=== PATIENT | female | born 1940 | race Caucasian/White ===

== ENCOUNTER 2023-09-14 12:53 | Inpatient (IN) | payer MEDICARE, OTHER, SELFPAY ==
[2023-09-14 12:54] VITALS: BP 121/60; PULSE 83; RESP 16; TEMP 36.3; O2SAT 94
[2023-09-14 12:59] VITALS: BMI 25.6
--- NOTE | 2023-09-14 13:11 | CT_ITS ---
CT LEFT LOWER EXTREMITY CLINICAL INDICATION: Tibial plateau fracture TECHNIQUE: Axial CT images of the LEFT lower extremity was performed IV contrast material. Coronal and sagittal reformats were provided. The protocol utilizes one or more of the following dose reduction techniques: automated exposure control, adjustment of mA and/or kV according to patient size,and/or use of iterative reconstruction technique. RADIATION DOSAGE (If Supplied By Facility): CTDIvol = ( 15.35 ) mGy, DLP = ( 779.75 ) mGycm COMPARISON: No relevant prior comparison study available FINDINGS: Bones: The bones are diffusely demineralized. There is a fracture within the proximal tibial metaphysis which extends into the lateral tibial plateau. No dislocation is visualized. There is a fracture of the proximal fibular epiphysis ascending into the metaphysis. There is an associated joint effusion. There are high density foci within the medial and lateral compartments consistent with chondrocalcinosis. There are vascular calcifications. No lytic or blastic osseous masses. Soft Tissues: There is stranding within the deep soft tissue adjacent to the proximal tibia and fibula.There is subcutaneous stranding within the lateral proximal lower extremity. CT/Extremity Lower without Contra IMPRESSION: Proximal tibial fracture. Proximal fibular fracture. Joint effusion. Atherosclerosis. Chondrocalcinosis. Electronically Signed: Ruthie Marcos MD at 15:23 EDT ,
[2023-09-14] MEDS: Morphine 4 MG/ML Syringe IV ×2 (13:26→14:45)
[2023-09-14] MEDS: Ondansetron 4 MG/2 ML Vial IV ×2 (13:26→15:26)
[2023-09-14 13:37] LABS: Absolute Lymphocyte Count 1.83 X10^3/uL (0.83-4.51); Absolute Neutrophil Count 8.5 X10^3/uL (2.0-7.7); Basophil# 0.06 X10^3/uL; Basophil% 0.5 % (0-1); Eosinophil# 0.15 X10^3/uL; Eosinophils% 1.3 % (0-5); Hematocrit 34.6 % (37-47); Hemoglobin 11.2 g/dL (12.0-15.0); Lymphocyte # 1.83 X10^3/ul (0.83-4.51); Lymphocyte % 15.7 % (19-41); Mean Corp Hgb Conc 32.4 g/dL (32-36); Mean Corpuscular Hgb 32.1 pg (27.0-32.0); Mean Corpuscular Volume 99.1 fL (81-99); Mean Platelet Vol. 11.4 fl (6.2-12.0); Monocyte% 9.4 % (0-10); NRBC Flagged by Analyzer 0 % (0-5); Neutrophil # 8.49 X10^3/uL (2.7-7.7); Neutrophil % 72.6 % (47-70); Platelet Count 270 K/mm3 (150-450); RBC Distribution Width CV 13.4 % (11.6-14.6); RBC Distribution Width SD 49.1 fl (35.1-43.9); Red Blood Count 3.49 M/mm3 (4.2-5.4); White Blood Count 11.7 K/mm3 (4.4-11.0)
--- NOTE | 2023-09-14 13:43 | EDS_ITS ---
<Statement entered by Claire Taylor MD - 09/14/23 21:45> I have personally performed a face to face assessment of the patient and have reviewed the SHANNA Note. Patient presents secondary to left knee pain. Patient was at a restaurant yesterday when she missed a step and fell injuring her left knee. She was seen at [facility] where she was diagnosed with a tibial plateau fracture. She was given a prescription for narcotics and placed in a straight leg knee brace. Patient lives alone and has not been able to get around and care for herself. Her pain is also not controlled. Patient sitting upright in bed no acute distress. Head and neck examination was no obvious external sign of trauma. Heart is regular rate and rhythm. Lung sounds are clear. Abdomen is soft with no focal tenderness. Left lower extremity examination reveals diffuse edema around the left knee with tenderness palpation. She does have good distal pulses. No tenderness at the hip or ankle. Patient given morphine for pain control. CBC and chemistry studies are obtained. White count is 11.7 with 72% neutrophils. Hemoglobin is 11.2 and hematocrit is 34.6. Chemistry studies and coags are unremarkable. CT scan of the left knee reveals fracture of the proximal tibia and fibula. There is concern for potential quadriceps injury based on exam findings, however this is not specifically documented in the CT. After getting second dose of morphine, patient developed chest pain and burning. EKG was obtained and reveals sinus rhythm at 65 bpm with no evidence of acute ischemia. She is given a dose of Protonix along with a GI cocktail. Orthopedics has been contacted as well as hospitalist. She will remain in the knee immobilizer and will be evaluated by Ortho. She may require short-term placement for rehab. Patient and daughter at bedside comfortable with the plan. HPI History of Present Illness Chief Complaint: Lower Extremity Injury Narrative Narrative: Patient is an 82-year-old female with history of fibromyalgia, hyperlipidemia, GERD who presents to the emergency department for worsening left leg pain. Patient states last evening, she was in [facility], she stepped off of a higher step and did not see it, she had pain to her left knee, left leg. Went to [facility], was diagnosed with a tibial plateau fracture, placed in a knee immobilizer given pain medicine and sent home. Patient does live alone and is unable to bear weight and take care of herself. The daughter is concerned that she cannot live at home by herself. The pain is also unbearable and the oxycodone is not helping. [facility] Medical History Nonrheumatic aortic (valve) stenosis Atherosclerotic heart disease of [place] coronary artery without angina pectoris Essential hypertension Elevated coronary artery calcium score Hyperlipidemia GERD (gastroesophageal reflux disease) Bilateral carotid artery disease Fibromyalgia H/O esophageal spasm Anxiety and depression Insomnia Home Medications ?Medication ?Instructions ?Recorded ?Last Taken ?Type acetaminophen 650 mg 650 mg PO Q12H 08/20/23 Unknown History tablet,extended release (Tylenol Arthritis Pain) alprazolam 0.25 mg tablet 0.25 mg PO TID PRN 08/20/23 Unknown History amlodipine 5 mg tablet 5 mg PO BID 08/20/23 Unknown History ascorbic acid (vitamin C) 500 mg 500 mg PO BID 08/20/23 Unknown History tablet aspirin 81 mg tablet,delayed 81 mg PO DAILY 08/20/23 Unknown History release (Adult Low Dose Aspirin) cholecalciferol (vitamin D3) 25 50 mcg PO DAILY 08/20/23 Unknown History mcg (1,000 unit) tablet clotrimazole-betamethasone 1 1 applic topical BID 08/20/23 Unknown History %-0.05 % topical cream estradiol 0.01% (0.1 mg/gram) 1 g vaginal Q OTHER DAY 08/20/23 Unknown History vaginal cream fluoxetine 20 mg capsule 20 mg PO BID 08/20/23 Unknown History gabapentin 600 mg tablet 600 mg PO TID 08/20/23 Unknown History lactobacillus combination no.4 3 3,000 mmu cells PO DAILY 08/20/23 Unknown History billion cell capsule (Probiotic) magnesium oxide 500 mg PO DAILY 08/20/23 Unknown History melatonin 5 mg tablet 5 mg PO HS PRN 08/20/23 Unknown History multivitamin 1 tab PO DAILY 08/20/23 Unknown History omeprazole 20 mg capsule,delayed 20 mg PO DAILY 08/20/23 Unknown History release ondansetron HCl 4 mg tablet 4 mg PO Q6H PRN 08/20/23 Unknown History pravastatin 40 mg tablet 40 mg PO DAILY 08/20/23 Unknown History zinc acetate 50 mg (zinc) capsule 50 mg PO DAILY 08/20/23 Unknown History cephalexin 250 mg capsule 250 mg PO DAILY 09/11/23 Unknown History d-mannose 500 mg capsule 1,000 mg PO BID 09/11/23 Unknown History fluorometholone 0.1 % eye 1 drp ophthalmic (eye) BID 09/11/23 Unknown History drops,suspension Allergy/AdvReac Type Severity Reaction Status Date / Time codeine Allergy Unknown hallucinati Verified 09/14/23 12:54 ons Sulfa (Sulfonamide Allergy Unknown Rash Verified 09/14/23 12:54 Antibiotics) atorvastatin AdvReac Unknown muscle Verified 09/14/23 12:54 cramping Family History Father Heart disease age 49 Mother Heart disease age 76 Brother Heart disease age 60 Brother Myocardial infarction Surgical History History of back surgery History of esophagogastroduodenoscopy (EGD) H/O arthroscopic knee surgery History of colonoscopy History of dilatation and curettage History of tonsillectomy History of cholecystectomy History of hysterectomy Social History Smoking Status: Former smoker how long ago did patient quit smokin alcohol intake: current alcohol intake frequency: 0-2 drinks per day Alcohol type: wine substance use type: does not use caffeine: Yes ROS ROS ED ROS Narrative Constitutional: Negative for fever, chills, weight loss, weakness Eyes: Negative for vision loss, vision change, double vision ENT: Negative for any sore throat, ear pain, congestion Cardiovascular: Negative for any chest pain, tightness, palpitations Respiratory: Negative for any cough, sputum production, hemoptysis, dyspnea, dyspnea on exertion, orthopnea Gastrointestinal: Negative for any abdominal pain, nausea, vomiting, diarrhea, constipation, blood in stool, blood in vomit : Negative for any urinary frequency, dysuria, retention, blood in urine Muscle skeletal: Negative for any neck pain, back pain. Positive left knee pain, left lower extremity pain Neurological: Negative for any headache, syncope, dizziness Skin: Negative for any rashes, itching, abrasions, lacerations Psychiatric: Negative for any depression, anxiety, stress, suicidal ideation, homicidal ideation Hematologic: Negative for any excessive bruising, easy bleeding EXAM Physical Exam Narrative Exam Narrative: Vital signs reviewed. Extremities: Patient does have some edema to the inferior aspect of the left knee, patient does not have an intact extensor mechanism. I do see is some deformity of the distal quadriceps. This is concerning. Patient does have +2 pedal pulse. Patient is able to dorsiflex, plantarflex the foot without any difficulty. Neuro: Cranial nerves II through XII intact, no focal neurological deficits. Skin: Clean dry and intact with no rash, purpura, petechiae, vesicles or pustules. Backs/flank: No CVA tenderness, no midline spinal tenderness, no deformity. Psych: Normal mood and affect. No SI, HI or acute psychosis. Const Vital Signs: 09/14/23 12:54 09/14/23 15:20 09/14/23 15:20 Temperature 97.3 F L Temperature Source Temporal Pulse Rate 83 Respiratory Rate 16 Blood Pressure 121/60 H Blood Pressure Mean 80 Pulse Ox 94 86 99 Oxygen Delivery Method Room Air Room Air Nasal Cannula Oxygen Flow Rate (L/min) 2 MDM MDM Lab Data Labs: Laboratory Results - last 24 hr 09/14/23 13:21 WBC 11.7 H RBC 3.49 L Hgb 11.2 L Hct 34.6 L MCV 99.1 H MCH 32.1 H MCHC 32.4 RDW Std Deviation 49.1 H RDW Coeff of Magdaleno 13.4 Plt Count 270 MPV 11.4 Immature Gran % (Auto) 0.500 Neut % (Auto) 72.6 H Lymph % (Auto) 15.7 L [place] % (Auto) 9.4 Eos % (Auto) 1.3 Baso % (Auto) 0.5 Absolute Neuts (auto) 8.5 H Absolute Lymphs (auto) 1.83 Nucleated RBC % 0 PT 12.7 INR 1.0 Sodium 135 L Potassium 3.9 Chloride 103 Carbon Dioxide 26.0 Anion Gap 6 BUN 12 Creatinine 0.72 Estim Creat Clear Calc 48.32 Est GFR (MDRD) Af Amer 99 Est GFR (MDRD) Non-Af 82 BUN/Creatinine Ratio 16.6 Glucose 105 Calcium 8.8 Radiography Diagnostic Testing: Clinical Impression(s) from Imaging Studies Lower Extremity CT 09/14/23 13:11 IMPRESSION: Proximal tibial fracture. Proximal fibular fracture. Joint effusion. Atherosclerosis. Chondrocalcinosis. Electronically Signed: Ruthie Marcos MD at 15:23 EDT , Treatment and Re-Evaluation :: Differential diagnosis includes however is not limited to: Uncontrolled pain, inability to live on her own secondary to tibial plateau fracture, quadricep tendon rupture, internal derangement Patient appears to be in mild distress secondary to pain to the left knee. Presenting to the emergency department with a known tibial plateau fracture that occurred last evening, inability to ambulate, care for self at home, unable to get the pain under control. Physical examination did show a left knee that did not have an intact extensor mechanism. I am concerned for quadricep tendon tear, patient will receive an CT scan of the left lower extremity. Patient be given basic laboratory eval as well as IV morphine, IV Zofran. Speaking with the patient as well as the patient's daughter, they are unsure if she can return home secondary to the pain and inability to ambulate. Patient will be reevaluated Patient's CBC shows slight leukocytosis with white blood count 11.7, hemoglobin 11.2 slightly low. PT/INR within normal limits. Chemistries were unremarkable. CT scan of the left lower extremity shows a proximal tibial fracture, proximal fibular fracture, joint effusion, arthrosclerosis as well as chondrocalcinosis. Patient had to be redosed with IV morphine. Patient then developed some midsternal chest pain which she had feeling of nausea likely from the morphine. EKG was unremarkable. [address] elevation. I did speak with Dr. Cook from orthopedics, they will follow the patient, I was able to speak to the hospitalist, patient will be admitted to the hospital. Spoke with the patient the patient's daughter, they are happy with the plan of care, stable for admission. Discharge Plan Triage Chief Complaint: Lower Extremity Injury ED Midlevel Provider: Taras Rey ED Provider: Claire Taylor Dx/Rx/DC Orders Clinical Impression: Fall, Closed fracture of tibial plateau, Closed fracture of proximal end of fibula, Inability to ambulate due to knee, Intractable pain Prescriptions: No Action acetaminophen [Tylenol Arthritis Pain] 650 mg tablet extended release 650 mg PO Q12H alprazolam 0.25 mg tablet 0.25 mg PO TID PRN amlodipine 5 mg tablet 5 mg PO BID ascorbic acid (vitamin C) 500 mg tablet 500 mg PO BID aspirin [Adult Low Dose Aspirin] 81 mg tablet,delayed release (DR/EC) 81 mg PO DAILY cholecalciferol (vitamin D3) 25 mcg (1,000 unit) tablet 50 mcg PO DAILY clotrimazole-betamethasone 1-0.05 % cream 1 applic topical BID estradiol 0.01 % (0.1 mg/gram) cream 1 g vaginal Q OTHER DAY fluoxetine 20 mg capsule 20 mg PO BID Rx Instructions: administer in the morning and at noon/midday gabapentin 600 mg tablet 600 mg PO TID Probiotic 3 billion cell capsule 3,000 mmu cells PO DAILY Rx Instructions: administer with a meal magnesium oxide 500 mg magnesium tablet 500 mg PO DAILY melatonin 5 mg tablet 5 mg PO HS PRN multivitamin Tablet 1 tab PO DAILY omeprazole 20 mg capsule,delayed release(DR/EC) 20 mg PO DAILY ondansetron HCl 4 mg tablet 4 mg PO Q6H PRN pravastatin 40 mg tablet 40 mg PO DAILY zinc acetate 50 mg (zinc) capsule 50 mg PO DAILY fluorometholone 0.1 % drops,suspension 1 drp ophthalmic (eye) BID d-mannose 500 mg capsule 1,000 mg PO BID cephalexin 250 mg capsule 250 mg PO DAILY Primary Care Provider: Sosa Vazquez Referrals: Sosa Vazquez NP-C [Primary Care Provider] - Print Language: Swedish Disposition Disposition: Acute Care Hospital [facility]
[2023-09-14 13:49] LABS: Prothrombin Time (Protime)PT. 12.7 SECONDS (11.7-14.9)
[2023-09-14 13:50] LABS: Anion Gap 6 (5-15); BUN 12 mg/dL (7-18); BUN/Creat Ratio 16.6 RATIO (10-20); Calcium,Total 8.8 mg/dL (8.5-10.1); Chloride 103 mmol/L (98-107); Creatinine, Serum 0.72 mg/dL (0.55-1.02); EST Glomerular Filtration Rate 82 mL/min (>60); Est Glom Filt Rate - Afr Amer 99 mL/min (>60); Estimated Creatinine Clearance 48.32 ml/min; Glucose 105 mg/dL (74-106); Potassium 3.9 mmol/L (3.5-5.1); Sodium Level 135 mmol/L (136-145)
--- NOTE | 2023-09-14 15:05 | EKG12_ITS ---
Test Reason : CP Blood Pressure : / mmHG Vent. Rate : 065 BPM Atrial Rate : 065 BPM P-R Int : 136 ms QRS Dur : 088 ms QT Int : 420 ms P-R-T Axes : 030 023 029 degrees QTc Int : 436 ms Normal sinus rhythm Normal ECG Confirmed by REYNOLD JUAREZ, ADOLFO ([id number]), desk editor KARENA STEVENS ([id number]) on 09/18/2023 9:38:26 AM Referred By: Confirmed By:CARRIE FLAHERTY MD
[2023-09-14 15:20] VITALS: O2SAT 86; O2SAT 99
[2023-09-14] MEDS: Pantoprazole Sodium 40 MG in 0.9% Normal Saline (100mL MB+) 100 ML 330 MG IV (15:49)
--- NOTE | 2023-09-14 15:51 | NURSING ---
DR AYSHA FREEDMAN
--- NOTE | 2023-09-14 15:54 | NURSING ---
MED SURG KITTOE TIBIAL PLATEAU FRACTURE, FIBULAR FRACTURE, INABILITY TO AMBULATE
--- NOTE | 2023-09-14 16:10 | HP.PCM.HOS_ITS ---
HPI - General General Date of Admission: 09/14/23 Date of Service: 09/14/23 Chief Complaint: Left knee pain HPI Narrative DESHAWN RAMOS, is a 82 F who presents with left knee pain. Patient apparently sustained a fall a day prior to her admission. She was seen at an outside hospital was brought to emergency department. Diagnosed with left tibial plateau fracture. Treated with pain medication and immobilization and discharged home. Patient apparently could not carry out activities of daily living following her discharge. Her pain apparently became more intense necessitating patient presenting today emergency department. Imaging studies obtained in the ED did confirm the diagnosis. Admitted to regular nursing floor for subsequent management [facility] Medical History Nonrheumatic aortic (valve) stenosis Atherosclerotic heart disease of [place] coronary artery without angina pectoris Essential hypertension Elevated coronary artery calcium score Hyperlipidemia GERD (gastroesophageal reflux disease) Bilateral carotid artery disease Fibromyalgia H/O esophageal spasm Anxiety and depression Insomnia Home Medications ?Medication ?Instructions ?Recorded ?Last Taken ?Type acetaminophen 650 mg 650 mg PO Q12H 08/20/23 Unknown History tablet,extended release (Tylenol Arthritis Pain) alprazolam 0.25 mg tablet 0.25 mg PO TID PRN 08/20/23 Unknown History amlodipine 5 mg tablet 5 mg PO BID 08/20/23 Unknown History ascorbic acid (vitamin C) 500 mg 500 mg PO BID 08/20/23 Unknown History tablet aspirin 81 mg tablet,delayed 81 mg PO DAILY 08/20/23 Unknown History release (Adult Low Dose Aspirin) cholecalciferol (vitamin D3) 25 50 mcg PO DAILY 08/20/23 Unknown History mcg (1,000 unit) tablet clotrimazole-betamethasone 1 1 applic topical BID 08/20/23 Unknown History %-0.05 % topical cream estradiol 0.01% (0.1 mg/gram) 1 g vaginal Q OTHER DAY 08/20/23 Unknown History vaginal cream fluoxetine 20 mg capsule 20 mg PO BID 08/20/23 Unknown History gabapentin 600 mg tablet 600 mg PO TID 08/20/23 Unknown History lactobacillus combination no.4 3 3,000 mmu cells PO DAILY 08/20/23 Unknown History billion cell capsule (Probiotic) magnesium oxide 500 mg PO DAILY 08/20/23 Unknown History melatonin 5 mg tablet 5 mg PO HS PRN 08/20/23 Unknown History multivitamin 1 tab PO DAILY 08/20/23 Unknown History omeprazole 20 mg capsule,delayed 20 mg PO DAILY 08/20/23 Unknown History release ondansetron HCl 4 mg tablet 4 mg PO Q6H PRN 08/20/23 Unknown History pravastatin 40 mg tablet 40 mg PO DAILY 08/20/23 Unknown History zinc acetate 50 mg (zinc) capsule 50 mg PO DAILY 08/20/23 Unknown History cephalexin 250 mg capsule 250 mg PO DAILY 09/11/23 Unknown History d-mannose 500 mg capsule 1,000 mg PO BID 09/11/23 Unknown History fluorometholone 0.1 % eye 1 drp ophthalmic (eye) BID 09/11/23 Unknown History drops,suspension Allergy/AdvReac Type Severity Reaction Status Date / Time codeine Allergy Unknown hallucinati Verified 09/14/23 12:54 ons Sulfa (Sulfonamide Allergy Unknown Rash Verified 09/14/23 12:54 Antibiotics) atorvastatin AdvReac Unknown muscle Verified 09/14/23 12:54 cramping Family History Father Heart disease age 49 Mother Heart disease age 76 Brother Heart disease age 60 Brother Myocardial infarction Surgical History History of back surgery History of esophagogastroduodenoscopy (EGD) H/O arthroscopic knee surgery History of colonoscopy History of dilatation and curettage History of tonsillectomy History of cholecystectomy History of hysterectomy Social History Smoking Status: Former smoker how long ago did patient quit smokin alcohol intake: current alcohol intake frequency: 0-2 drinks per day Alcohol type: wine substance use type: does not use caffeine: Yes ROS ROS Narrative GENERAL: denies fever, chills, night sweats, weight loss, anorexia HEENT: denies headache, sinus congestion, or drainage, dysphagia RESPIRATORY: denies cough, sputum production, shortness of breath, CARDIAC: denies chest pain, palpitations, orthopnea, PND GASTROINTESTINAL: denies abdominal pain, nausea, vomiting, melena, GENITOURINARY: denies dysuria, urgency, frequency, heamaturia EXTREMITY: denies swelling MUSCULOSKELETAL: Left knee pain NEUROLOGIC: denies focal numbness, weakness, tingling HEMATOLOGIC: denies easy bruising and/or hemorrhage INTEGUMENT: denies rashes PSYCHIATRIC: denies suicidal or homicidal ideation Vital Signs Vital Signs Vital Signs: 09/14/23 12:54 09/14/23 15:20 09/14/23 15:20 Temperature 97.3 F L Temperature Source Temporal Pulse Rate 83 Respiratory Rate 16 Blood Pressure 121/60 H Blood Pressure Mean 80 Pulse Ox 94 86 99 Oxygen Delivery Method Room Air Room Air Nasal Cannula Oxygen Flow Rate (L/min) 2 Weight Weight: 63.6 kg Body Mass Index (BMI) 25.6 Physical Exam Narrative GENERAL: cooperative HEENT: Atraumatic; normocephalic EYES; Anicteric, Normal Conjunctiva NECK; supple, normal thyroid, RESPIRATORY: Diminished to auscultation CARDIOVASCULAR: Regular S1 S2, GI: soft, normoactive bowel sounds, : No Renal angle tenderness; EXTREMITIES: No edema, no clubbing, MUSCULOSKELETAL: Left knee swelling tender to palpation with restricted movement NEURO: Awake; no lateralizing signs. SKIN: No Rash PSYCH; Flat affect Results Lab / Micro Data 09/14/23 13:21 09/14/23 13:21 Labs: Laboratory Results - last 24 hr 09/14/23 13:21: WBC 11.7 H, RBC 3.49 L, Hgb 11.2 L, Hct 34.6 L, MCV 99.1 H, MCH 32.1 H, MCHC 32.4, RDW Std Deviation 49.1 H, RDW Coeff of Magdaleno 13.4, Plt Count 270, MPV 11.4, Immature Gran % (Auto) 0.500, Neut % (Auto) 72.6 H, Lymph % (Auto) 15.7 L, [place] % (Auto) 9.4, Eos % (Auto) 1.3, Baso % (Auto) 0.5, Absolute Neuts (auto) 8.5 H, Absolute Lymphs (auto) 1.83, Nucleated RBC % 0, PT 12.7, INR 1.0, Sodium 135 L, Potassium 3.9, Chloride 103, Carbon Dioxide 26.0, Anion Gap 6, BUN 12, Creatinine 0.72, Estim Creat Clear Calc 48.32, Est GFR (MDRD) Af Amer 99, Est GFR (MDRD) Non-Af 82, BUN/Creatinine Ratio 16.6, Glucose 105, Calcium 8.8 Imaging Radiology Impression Lower Extremity CT 09/14/23 13:11 IMPRESSION: Proximal tibial fracture. Proximal fibular fracture. Joint effusion. Atherosclerosis. Chondrocalcinosis. Electronically Signed: Ruthie Marcos MD at 15:23 EDT Reading Location ID and State: [facility] / [place] Tel , Service support , Assessment & Plan Assessment/Plan (1) Closed fracture of proximal end of fibula: (2) Closed fracture of tibial plateau: PLAN: Plan Patient is an 82-year-old lady presenting following a fall with subsequent left knee pain 1. Fall with left knee pain ? Imaging studies demonstrated Proximal tibial fracture, Proximal fibular fracture Joint effusion.. Patient has been admitted to regular nursing floor managed with immobilization pain meds requested for PT OT eval and treatment. Dr. Roddy Masterson the orthopedic surgeon on-call was notified from the ED 2. Essential hypertension ? Patient blood pressure control not optimal given her significant pain. Did continue with home meds and added hydralazine as needed for systolic blood pressure greater than 160 3. GERD ? Patient is on PPI did continue 4. Dyslipidemia -Patient is on statin therapy, continued at home dose 5. Fibromyalgia ? Plan is to treat symptomatically 6. Valvular heart disease ? With history of nonrheumatic aortic valve stenosis patient to follow-up with primary appliance service technician following discharge 7. DVT prophylaxis ? SC heparin Advance planning; did discuss with the patient and family regarding advanced directives as well as CODE STATUS. Did explain the various scenarios involved ( FULL CODE, DNR CCA, DNR CCA with no intubation, and DNR CC and what each meant) patient elected to remain full code with CPR and intubation if needed. Order was placed. Time spent on discussion 16 minutes. Charges/Coding Multi Select Codes Visit Charges Visit Charges: 83448 Init Hosp L2 Hospitalists' Procedures Procedures: 56402 Advncd Care Plan 30 Min
[2023-09-14 16:16] VITALS: BP 137/90; PULSE 78; RESP 16; TEMP 36.6; O2SAT 98
[2023-09-14 17:40] VITALS: BMI 25.0
[2023-09-14 18:00] VITALS: BP 141/67; PULSE 75; RESP 18; TEMP 36.6; O2SAT 100
[2023-09-14] MEDS: Acetaminophen 500 MG Tablet 1000 MG PO ×2 (18:41→23:45)
[2023-09-14] MEDS: oxyCODONE 5 MG Tablet 10 MG PO ×2 (18:42→23:45)
[2023-09-14 21:01] VITALS: BP 115/59; PULSE 81; RESP 18; TEMP 36.7; O2SAT 96
[2023-09-14] MEDS: Senna/Docusate Sodium 1 Tablet 2 TABLET PO (21:24)
[2023-09-14] MEDS: Gabapentin 600 MG Tablet 1200 MG PO (21:24)
[2023-09-14] MEDS: ALPRAZolam 0.25 MG Tablet PO (21:24)
[2023-09-14] MEDS: Heparin Injection (Vial) 5,000 UNIT/ML VIAL 5000 UNIT SC (21:25)
[2023-09-14] MEDS: Cephalexin 250 MG Capsule PO (21:26)
[2023-09-14] MEDS: Cholecalciferol (VIT D3) 25 MCG TABLET (1,000 UNITS) 50 MCG PO (21:26)
[2023-09-14] MEDS: FLUoxetine 20 MG Capsule PO (21:28)
[2023-09-14] MEDS: Glycerin/Hypromellose/PEG400 15 ml Bottle 2 DRP EACH EYE (23:46)
[2023-09-15 04:22] VITALS: BP 126/57; PULSE 68; RESP 18; TEMP 36.5; O2SAT 98
[2023-09-15] MEDS: Acetaminophen 500 MG Tablet 1000 MG PO ×3 (06:26→22:08)
[2023-09-15 07:30] LABS: Absolute Lymphocyte Count 1.83 X10^3/uL (0.83-4.51); Absolute Neutrophil Count 7.1 X10^3/uL (2.0-7.7); Basophil# 0.05 X10^3/uL; Basophil% 0.5 % (0-1); Eosinophils% 1.9 % (0-5); Hematocrit 33.3 % (37-47); Hemoglobin 10.5 g/dL (12.0-15.0); Lymphocyte # 1.83 X10^3/ul (0.83-4.51); Lymphocyte % 17.7 % (19-41); Mean Corp Hgb Conc 31.5 g/dL (32-36); Mean Corpuscular Volume 101.5 fL (81-99); Mean Platelet Vol. 11.7 fl (6.2-12.0); Monocyte# 1.11 X10^3/uL; Monocyte% 10.8 % (0-10); NRBC Flagged by Analyzer 0 % (0-5); Neutrophil # 7.07 X10^3/uL (2.7-7.7); Neutrophil % 68.5 % (47-70); Platelet Count 256 K/mm3 (150-450); RBC Distribution Width CV 13.5 % (11.6-14.6); RBC Distribution Width SD 50.6 fl (35.1-43.9); Red Blood Count 3.28 M/mm3 (4.2-5.4); White Blood Count 10.3 K/mm3 (4.4-11.0)
[2023-09-15 08:04] LABS: Anion Gap 6 (5-15); BUN 9 mg/dL (7-18); Calcium,Total 8.7 mg/dL (8.5-10.1); Chloride 100 mmol/L (98-107); Creatinine, Serum 0.56 mg/dL (0.55-1.02); EST Glomerular Filtration Rate 110 mL/min (>60); Est Glom Filt Rate - Afr Amer 133 mL/min (>60); Estimated Creatinine Clearance 47.73 ml/min; Glucose 109 mg/dL (74-106); Potassium 3.9 mmol/L (3.5-5.1); Sodium Level 133 mmol/L (136-145)
[2023-09-15] MEDS: Aspirin E.C. 81 MG Tablet PO (08:35)
[2023-09-15] MEDS: Lactobacillis Acidophilus 1 CAP PO (08:36)
[2023-09-15] MEDS: Multivitamins,Therapeutic Tablet 1 TABLET PO (08:36)
[2023-09-15] MEDS: FLUoxetine 20 MG Capsule PO ×2 (08:36→22:08)
[2023-09-15] MEDS: Gabapentin 600 MG Tablet PO (08:39)
[2023-09-15 08:41] VITALS: O2SAT 98
[2023-09-15 10:00] VITALS: BP 117/58; PULSE 81; RESP 18; TEMP 36.6; O2SAT 92
[2023-09-15] MEDS: Pravastatin 40 MG Tablet PO (10:36)
[2023-09-15] MEDS: Magnesium Chloride 64 MG Delay Rel.Tablet 128 MG PO (10:37)
[2023-09-15] MEDS: amLODIPine 5 MG Tablet PO ×2 (10:37→22:08)
[2023-09-15] MEDS: Cholecalciferol (VIT D3) 25 MCG TABLET (1,000 UNITS) 50 MCG PO ×2 (10:38→22:08)
[2023-09-15] MEDS: Heparin Injection (Vial) 5,000 UNIT/ML VIAL 5000 UNIT SC ×2 (10:39→22:09)
[2023-09-15] MEDS: Pantoprazole Sodium 40 MG Tablet PO (10:39)
[2023-09-15] MEDS: Nalbuphine 10 MG/ML Ampul IV ×3 (10:53→22:18)
[2023-09-15] MEDS: 0.9% Saline Lock 10 ML Syringe IV ×2 (10:53→16:36)
--- NOTE | 2023-09-15 14:44 | PN.HOSP_ITS ---
Reason for Visit Reason for Visit: Diagnoses Displaced bicondylar fracture of unspecified tibia, initial encounter for closed fracture (09/14/23) Other fracture of upper and lower end of unspecified fibula, initial encounter for closed fracture (09/14/23) Subjective Subjective Patient was seen and examined today, she is still having quite a bit of pain in her left knee area. She states she received IV morphine last night and had a reaction to it, she said her heart racing and she became sweaty and somewhat short of breath. I talked to her and her niece who was in the room at the time of my examination about her fracture and confirmed that there would be no surgery needed for it, I canceled the consultation for orthopedic surgery initially but after talking with the patient's daughter by phone later on in the day, she requested that the patient be seen by orthopedic surgery and so I placed the consult back in for the patient. Objective Data Objective Data Vital Signs: Vital Signs Temp Pulse Resp BP Pulse Ox O2 Del Method O2 Flow Rate 98 F 81 18 117/58 L 92 Room Air 2 09/15/23 10:00 09/15/23 10:09/15/23 10:09/15/23 10:09/15/23 10:09/15/23 10:00 09/15/23 08:41 Oxygen Flow Rate (L/min) 2 Oxygen Delivery Method Room Air Weight: 61.915 kg Body Mass Index (BMI) 25.0 Intake & Output: Intake and Output for Last 24 Hours 09/13/23 09/14/23 09/15/23 23:59 23:59 23:59 Intake Total 410 / 410 1200 / 1200 Output Total 600 / 600 Balance 410 / 410 600 / 600 Lab / Micro Data 09/15/23 05:38 09/15/23 05:38 Labs: Laboratory Results - last 24 hr 09/15/23 05:38: WBC 10.3, RBC 3.28 L, Hgb 10.5 L, Hct 33.3 L, MCV 101.5 H, MCH 32.0, MCHC 31.5 L, RDW Std Deviation 50.6 H, RDW Coeff of Magdaleno 13.5, Plt Count 256, MPV 11.7, Immature Gran % (Auto) 0.600, Neut % (Auto) 68.5, Lymph % (Auto) 17.7 L, [place] % (Auto) 10.8 H, Eos % (Auto) 1.9, Baso % (Auto) 0.5, Absolute Neuts (auto) 7.1, Absolute Lymphs (auto) 1.83, Nucleated RBC % 0, Sodium 133 L, Potassium 3.9, Chloride 100, Carbon Dioxide 27.0, Anion Gap 6, BUN 9, Creatinine 0.56, Estim Creat Clear Calc 47.73, Est GFR (MDRD) Af Amer 133, Est GFR (MDRD) Non-Af 110, BUN/Creatinine Ratio 16.0, Glucose 109 H, Calcium 8.7 Radiography Diagnostic Testing: Radiology Impression Lower Extremity CT 09/14/23 13:11 IMPRESSION: Proximal tibial fracture. Proximal fibular fracture. Joint effusion. Atherosclerosis. Chondrocalcinosis. Electronically Signed: Ruthie Marcos MD at 15:23 EDT , Physical Exam Const alert, oriented x3, no apparent distress, average body habitus and healthy appearing General Appearance: cooperative, well kempt and well developed Orientation / Consciousness: awake, oriented to person, oriented to place and oriented to time HEENT normocephalic, head/scalp atraumatic and moist oral mucous membranes Eyes PERRL, EOMs intact bilaterally and conjunctivae normal Neck supple, no JVD, thyroid normal and no carotid bruits General: trachea midline Resp normal respiratory effort, no retractions, no use of accessory muscles and clear to auscultation bilaterally Auscultation: Negative for rales, rhonchi or wheezes Cardio regular rate, regular rhythm, S1 normal heart sound, S2 normal heart sound, no murmurs, no rub and no gallops GI normal to inspection, nondistended, normoactive bowel sounds, soft to palpation, non-tender and non-distended Extremity Extremity Narrative: Patient's left leg is in a knee immobilizer, this was not removed for examination of the area Skin no rashes or lesions noted General Skin Exam: no breakdown Neuro oriented x3, CN's II-XII intact bilaterally, no focal motor deficits and no sensory deficits noted Sensorium / Orientation: awake and alert Speech: speech normal Psych affect normal Assessment & Plan Assessment/Plan (1) Intractable pain: PLAN: Plan 1. Intractable pain from recent left tibial plateau fracture-change the patient's IV pain medication to Nubain and she will take oxycodone as needed for milder pain. PT and OT are seeing the patient, she will need to think about where she would like to go for rehab services, I suggested TCU, this will depend on what the daughter wants also. #2 left tibial plateau fracture-knee immobilizer will be kept on for 6 weeks, she will be nonweightbearing on that side #3 essential hypertension-patient will remain on her medication, medication will be adjusted as necessary #4 chronic depression-patient is on fluoxetine #5 fibromyalgia-patient uses gabapentin Total clinical time spent by myself addressing the patient's medical issues, reviewing all of her data, and collaborating with the patient's care team: 35 minutes Charges/Coding Visit Charges Inpatient E&M: 31419 Subs Hosp L2
[2023-09-15 15:50] VITALS: BP 131/77; PULSE 77; RESP 18; TEMP 36.6; O2SAT 93
[2023-09-15 15:51] VITALS: PULSE 77; RESP 18; O2SAT 93
[2023-09-15 20:20] VITALS: BP 133/59; PULSE 80; RESP 18; TEMP 36.6; O2SAT 92
[2023-09-15] MEDS: Cephalexin 250 MG Capsule PO (22:08)
[2023-09-15] MEDS: Gabapentin 600 MG Tablet 1200 MG PO (22:09)
[2023-09-15] MEDS: ALPRAZolam 0.25 MG Tablet PO (22:14)
[2023-09-15] MEDS: Glycerin/Hypromellose/PEG400 15 ml Bottle 2 DRP EACH EYE (22:15)
[2023-09-15] MEDS: Senna/Docusate Sodium 1 Tablet 2 TABLET PO (22:15)
[2023-09-16 03:44] VITALS: BP 161/70; PULSE 92; RESP 18; TEMP 36.7; O2SAT 98
--- NOTE | 2023-09-16 03:49 | EKG12_ITS ---
Test Reason : cp Blood Pressure : / mmHG Vent. Rate : 095 BPM Atrial Rate : 095 BPM P-R Int : 136 ms QRS Dur : 076 ms QT Int : 354 ms P-R-T Axes : 021 013 027 degrees QTc Int : 444 ms Normal sinus rhythm Normal ECG When compared with ECG of 14-SEP-2023 15:09, MANUAL COMPARISON REQUIRED, DATA IS UNCONFIRMED Confirmed by REYNOLD JUAREZ, ADOLFO ([id number]), publishing editor KARENA STEVENS ([id number]) on 09/18/2023 10:06:55 AM Referred By: Eloina Confirmed By:CARRIE FLAHERTY MD
[2023-09-16] MEDS: Nalbuphine 10 MG/ML Ampul IV ×2 (03:58→21:09)
--- NOTE | 2023-09-16 04:08 | NURSING ---
Pt had complaints of chest pain with some tightness. Per policy I ordered a STAT EKG, readjusted pt and pulled her up in bed. I medicated pt with IV nubain for her leg pain. The EKG was read by Dr. Patten and it was determined NSR with no STEMI. Physician said as long as patient starts feeling better she is not concerned.
[2023-09-16] MEDS: Acetaminophen 500 MG Tablet 1000 MG PO ×3 (06:34→21:10)
[2023-09-16 07:43] VITALS: O2SAT 87
[2023-09-16 07:45] VITALS: O2SAT 94
[2023-09-16 08:30] VITALS: BP 132/53; PULSE 92; RESP 16; TEMP 36.9; O2SAT 94
[2023-09-16] MEDS: amLODIPine 5 MG Tablet PO ×2 (08:48→21:11)
[2023-09-16] MEDS: Cholecalciferol (VIT D3) 25 MCG TABLET (1,000 UNITS) 50 MCG PO ×2 (08:48→21:11)
[2023-09-16] MEDS: Magnesium Chloride 64 MG Delay Rel.Tablet 128 MG PO (08:48)
[2023-09-16] MEDS: Pantoprazole Sodium 40 MG Tablet PO (08:49)
[2023-09-16] MEDS: Pravastatin 40 MG Tablet PO (08:49)
[2023-09-16] MEDS: Multivitamins,Therapeutic Tablet 1 TABLET PO (08:49)
[2023-09-16] MEDS: FLUoxetine 20 MG Capsule PO ×2 (08:49→21:11)
[2023-09-16] MEDS: Heparin Injection (Vial) 5,000 UNIT/ML VIAL 5000 UNIT SC ×2 (08:50→21:10)
[2023-09-16] MEDS: oxyCODONE 5 MG Tablet 10 MG PO ×2 (08:56→14:09)
[2023-09-16] MEDS: Gabapentin 600 MG Tablet PO (08:56)
--- NOTE | 2023-09-16 10:06 | CASEMGMT ---
Social Work- A list of SNF providers including quality and resource use data and consistent with the patient?s preferred geographic region, medical needs, and insurance network were provided from the [facility] Guide. [facility] and [facility] are pt choices, in no order. DCA advisd to begin referral. PARIS Carter
--- NOTE | 2023-09-16 10:10 | CASEMGMT ---
SAMANTHA REYNA Assessment Face to Face with patient for initial transition planning/care coordination assessment. SAMANTHA REYNA introduced self and role at [facility], pt voices understanding. Pt is A&Ox4 and is resting comfortably in bed and is calm. Care providers, pharmacy, and demographics verified. Admitting dx: Intractable Pain PCP: Sosa Vazquez Specialists: JAVIER Preferred Pharmacy: [facility] Insurance: [facility] A/B Prescription Benefit: Yes LNOK: Jes Sequeira (Daughter), Jr Pena (Nephew) Living Arrangements: Pt lives alone in ground level apartment/ condo with one smell step to manage ADLs/IADLs: Independent at baseline Transportation: Self, Family, Friends DME: C[employer], [employer], Access to [facility]. HHC/SNF: Denies history Pt?s goal: Return to PLOF Plan: SNF. Pt and pt daughter state that they would like to participate in further rehabilitation for the pt to return to PLOF. Ortho consult is pending. Pt and pt daughter would like to review a list of options that are in network with the pt insurance. SW updated and to provide list of options. Gonzalo Salgado RN, CM
--- NOTE | 2023-09-16 10:21 | CASEMGMT ---
Addendum entered by Renetta Trammell 09/17/23 08:15: [facility] has accepted. Renetta Trammell DC Planning Asst. Addendum entered by Renetta Trammell 09/16/23 11:41: [facility] accepted patient. SW updated. Renetta Trammell DC Planning Asst. Original Note: Discharge Planning Referral sent to [facility] and [facility] via [facility]. Renetta Trammell DC Planning Asst.
[2023-09-16] MEDS: Senna/Docusate Sodium 1 Tablet 2 TABLET PO ×2 (10:29→21:20)
[2023-09-16] MEDS: Lactobacillis Acidophilus 1 CAP PO (10:29)
[2023-09-16 15:00] VITALS: BP 145/56; PULSE 79; RESP 18; TEMP 36.8; O2SAT 93
--- NOTE | 2023-09-16 15:00 | CASEMGMT ---
Social Work- SW met with pt to update that [facility] accepted referral; no decision from [facility] at this time. 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 Pt reports she has a close, personal relationship with staff and would feel very comfortable going there. PT would like to accept [facility] at primary choice at this time. PARIS Carter
--- NOTE | 2023-09-16 15:52 | CHAPLAIN ---
Type of Pastoral Visit _x__ Initial Visit ___ Follow-up Visit ___ On-call Visit ___ General Patient Visit ___ Spiritual Assessment ___ Family Conference ___ Bereavement ___ Rapid Response ___ Code Blue ___ Other (describe below) Pastoral Care Referral From _x__ Patient ___ Family ___ Nurse ___ Physician ___ Director Of Casino Marketing ___ Search Engine Marketing Specialist ___ Other (describe below) Sacrament/Intervention _x__ Active listening ___ Anointing ___ Yarsanism ___ Bereavement ___ Communion _x__ Zenaida exploration ___ _x__ Life review _x__ Prayer ___ Reconciliation ___ Sacrament of Sick ___ Supportive presence ___ Wedding ___ Other (describe below) Pastoral Comments patient is very talkative about her life and about her experiences with health and accident; pt identifies self as a Yazdanism and explains her zenaida journey through the years and deep life challenges; pt is very active and 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
--- NOTE | 2023-09-16 15:59 | CASEMGMT ---
Social Work- SW spoke with daughter who confirms [facility] as FOC. SW let [facility] know that they are FOC. SW advised [facility] to cancel referral. Plan: [facility]; skilled level of care PARIS Carter
--- NOTE | 2023-09-16 16:35 | CONS.ORTHO ---
HPI Consult Data Date of Consult: 09/16/23 HPI Narrative HPI Narrative: DESHAWN RAMOS, is a 82 F who presents with a left proximal tibia minimally displaced fracture. Patient was initially seen in [place] [facility] and was placed in knee immobilizer and discharged home, but patient was not able to mobilize with nonweightbearing instructions and came back to [facility] for admission for placement. I was consulted over the weekend. I reviewed the images over the weekend and discussed nonoperative treatment with treating hospitalist. I saw the patient in 301 today. Deshawn is a pleasant 82-year-old lady. Pain is well-controlled. Describes pain of the anterior and lateral worse than medial knee. Denies any open wounds. Denies any other injuries. COUNTS INCLUDE 234 BEDS AT THE [facility] Medical History Nonrheumatic aortic (valve) stenosis Atherosclerotic heart disease of [place] coronary artery without angina pectoris Essential hypertension Elevated coronary artery calcium score Hyperlipidemia GERD (gastroesophageal reflux disease) Bilateral carotid artery disease Fibromyalgia H/O esophageal spasm Anxiety and depression Insomnia Home Medications ?Medication ?Instructions ?Recorded ?Last Taken ?Type acetaminophen 650 mg 650 mg PO Q12H pain 08/20/23 Unknown History tablet,extended release (Tylenol Arthritis Pain) alprazolam 0.25 mg tablet 0.25 mg PO TID PRN anxiety 08/20/23 Unknown History amlodipine 5 mg tablet 5 mg PO BID blood pressure 08/20/23 Unknown History ascorbic acid (vitamin C) 500 mg 500 mg PO BID supplement 08/20/23 Unknown History tablet aspirin 81 mg tablet,delayed 81 mg PO DAILY heart health 08/20/23 Unknown History release (Adult Low Dose Aspirin) cholecalciferol (vitamin D3) 25 50 mcg PO BID supplement 08/20/23 Unknown History mcg (1,000 unit) tablet clotrimazole-betamethasone 1 1 applic topical BID preventative 08/20/23 09/12/23 22:00 History %-0.05 % topical cream FOR UTI estradiol 0.01% (0.1 mg/gram) 1 g vaginal Q OTHER DAY chronic uti 08/20/23 Unknown History vaginal cream fluoxetine 20 mg capsule 20 mg PO BID depression 08/20/23 Unknown History gabapentin 600 mg tablet 600 mg PO TID fibromyalgia 08/20/23 Unknown History lactobacillus combination no.4 3 3,000 mmu cells PO DAILY supplement 08/20/23 Unknown History billion cell capsule (Probiotic) magnesium oxide 500 mg PO DAILY supplement 08/20/23 Unknown History melatonin 5 mg tablet 5 mg PO HS PRN sleep 08/20/23 Unknown History multivitamin 1 tab PO DAILY supplement 08/20/23 Unknown History omeprazole 20 mg capsule,delayed 20 mg PO DAILY gerd 08/20/23 Unknown History release ondansetron HCl 4 mg tablet 4 mg PO Q6H PRN nasuea 08/20/23 Unknown History pravastatin 40 mg tablet 40 mg PO DAILY cholesterol 08/20/23 Unknown History zinc acetate 50 mg (zinc) capsule 50 mg PO DAILY supplement 08/20/23 Unknown History cephalexin 250 mg capsule 250 mg PO DAILY chronic uti 09/11/23 Unknown History d-mannose 500 mg capsule 1,000 mg PO BID preventative for 09/11/23 09/13/23 08:00 History UTI fluorometholone 0.1 % eye 1 drp ophthalmic (eye) BID dry eyes 09/11/23 Unknown History drops,suspension Allergy/AdvReac Type Severity Reaction Status Date / Time codeine Allergy Unknown hallucinati Verified 09/14/23 12:54 ons Sulfa (Sulfonamide Allergy Unknown Rash Verified 09/14/23 12:54 Antibiotics) atorvastatin AdvReac Unknown muscle Verified 09/14/23 12:54 cramping Family History Father Heart disease age 49 Mother Heart disease age 76 Brother Heart disease age 60 Brother Myocardial infarction Surgical History History of back surgery History of esophagogastroduodenoscopy (EGD) H/O arthroscopic knee surgery History of colonoscopy History of dilatation and curettage History of tonsillectomy History of cholecystectomy History of hysterectomy Social History Smoking Status: Former smoker how long ago did patient quit smokin alcohol intake: current alcohol intake frequency: 0-2 drinks per day Alcohol type: wine substance use type: does not use caffeine: Yes Vital Signs Vital Signs Vital Signs: 09/15/23 20:20 09/15/23 20:24 09/15/23 22:00 Temperature 97.8 F Temperature Source Oral Pulse Rate 80 Pulse Strength Normal (2+) Respiratory Rate 18 Respiratory Effort Normal Non-Labored Respiratory Depth Normal Respiratory Pattern Normal Blood Pressure 133/59 H Blood Pressure Mean 83 Blood Pressure Source Monitor Blood Pressure Position Semi-Fowlers Blood Pressure Location Right Arm Pulse Ox 92 Oxygen Delivery Method Room Air Room Air Oxygen Flow Rate (L/min) 09/16/23 03:44 09/16/23 04:03 09/16/23 07:43 Temperature 98.1 F Temperature Source Oral Pulse Rate 92 Pulse Strength Respiratory Rate 18 Respiratory Effort Normal Non-Labored Respiratory Depth Normal Respiratory Pattern Normal Blood Pressure 161/70 H Blood Pressure Mean 100 Blood Pressure Source Monitor Blood Pressure Position Semi-Fowlers Blood Pressure Location Right Arm Pulse Ox 98 87 Oxygen Delivery Method Room Air Room Air Room Air Oxygen Flow Rate (L/min) 09/16/23 07:45 09/16/23 08:30 09/16/23 10:00 Temperature 98.4 F Temperature Source Oral Pulse Rate 92 Pulse Strength Normal (2+) Respiratory Rate 16 Respiratory Effort Respiratory Depth Respiratory Pattern Blood Pressure 132/53 H Blood Pressure Mean 79 Blood Pressure Source Monitor Blood Pressure Position Semi-Fowlers Blood Pressure Location Right Arm Pulse Ox 94 94 Oxygen Delivery Method Nasal Cannula Nasal Cannula Oxygen Flow Rate (L/min) 2 2 09/16/23 15:00 Temperature 98.3 F Temperature Source Oral Pulse Rate 79 Pulse Strength Respiratory Rate 18 Respiratory Effort Respiratory Depth Respiratory Pattern Blood Pressure 145/56 H Blood Pressure Mean 85 Blood Pressure Source Monitor Blood Pressure Position Semi-Fowlers Blood Pressure Location Right Arm Pulse Ox 93 Oxygen Delivery Method Room Air Oxygen Flow Rate (L/min) Weight Weight: 136 lb 8 oz Body Mass Index (BMI) 25.0 Physical Exam Narrative I remove the knee immobilizer to evaluate. Tenderness noticed throughout the anterior knee region more so over the lateral tibial condyle. Minimal pain and swelling medially also noticed. Distal neurovascular exam is intact. Foot and ankle swelling noticed. Lab / Micro Data 09/15/23 05:38 09/15/23 05:38 Assessment & Plan Assessment/Plan (1) Closed fracture of tibial plateau: QUALIFIERS: Encounter type: initial encounter Laterality: left Qualified Code(s): S82.142A - Displaced bicondylar fracture of left tibia, initial encounter for closed fracture PLAN: Plan I reviewed the CT scan of the left lower extremity done in the ER on Saturday. I was not able to review the outside x-rays at the different ER. The CT shows left proximal tibia fracture with fracture line going intra-articular with the suspected complete mid physeal fracture with possible bicondylar extension suggesting a Schatzker type injury. Patient mentions of a possible proximal tibial fracture back in the 70s that was treated nonoperatively. It is unclear if some of the suspicious fracture lines seen on the CT may be remnant of that healed fracture. Regardless with only minimal displacement and adequate maintenance of the joint line, and considering her advanced age, I would like to treat this fracture nonoperatively. She should continue with the knee immobilizer for now. Discussed limb elevation over a pillow and encouraged active toe movements. Ice application would also help. Discussed follow-up in orthopedic clinic in 2 weeks for repeat imaging. If she maintains adequate alignment, we will continue nonsurgical treatment. At some point we may transition her to a hinged knee brace to allow some knee movement to prevent stiffness. She will need to be nonweightbearing at least for 6 weeks. Patient will be placed into rehab center and will follow-up with me in orthopedic clinic in 2 weeks. Charges/Coding Visit Charges Inpatient E&M: 12344 Init Hosp L3
--- NOTE | 2023-09-16 16:38 | PN.HOSP_ITS ---
Reason for Visit Reason for Visit: Diagnoses Pain, unspecified (09/14/23) Displaced bicondylar fracture of unspecified tibia, initial encounter for closed fracture (09/14/23) Other fracture of upper and lower end of unspecified fibula, initial encounter for closed fracture (09/14/23) Subjective Subjective Patient was seen and examined today, I talked to the daughter who was in the room at the time my examination. Patient is still having significant pain in her left knee. She remains on IV Nubain and oral oxycodone. She is also receiving programmed Tylenol Objective Data Objective Data Vital Signs: Vital Signs Temp Pulse Resp BP Pulse Ox O2 Del Method O2 Flow Rate 98.3 F 79 18 145/56 H 93 Room Air 2 09/16/23 15:00 09/16/23 15:00 09/16/23 15:00 09/16/23 15:00 09/16/23 15:00 09/16/23 15:00 09/16/23 08:30 Oxygen Flow Rate (L/min) 2 Oxygen Delivery Method Room Air Weight: 61.915 kg Body Mass Index (BMI) 25.0 Intake & Output: Intake and Output for Last 24 Hours 09/14/23 09/15/23 09/16/23 23:59 23:59 23:59 Intake Total 410 / 410 1600 / 1600 1600 / 1600 Output Total 1000 / 1000 1850 / 1850 Balance 410 / 410 600 / 600 -250 / -250 Lab / Micro Data 09/15/23 05:38 09/15/23 05:38 Physical Exam Narrative alert, oriented x3, no apparent distress, average body habitus and healthy appearing General Appearance: cooperative, well kempt and well developed Orientation / Consciousness: awake, oriented to person, oriented to place and oriented to time HEENT normocephalic, head/scalp atraumatic and moist oral mucous membranes Eyes PERRL, EOMs intact bilaterally and conjunctivae normal Neck supple, no JVD, thyroid normal and no carotid bruits General: trachea midline Resp normal respiratory effort, no retractions, no use of accessory muscles and clear to auscultation bilaterally Auscultation: Negative for rales, rhonchi or wheezes Cardio regular rate, regular rhythm, S1 normal heart sound, S2 normal heart sound, no murmurs, no rub and no gallops GI normal to inspection, nondistended, normoactive bowel sounds, soft to palpation, non-tender and non-distended Extremity Extremity Narrative: Patient's left leg is in a knee immobilizer, this was not removed for examination of the area Skin no rashes or lesions noted General Skin Exam: no breakdown Neuro oriented x3, CN's II-XII intact bilaterally, no focal motor deficits and no sensory deficits noted Sensorium / Orientation: awake and alert Speech: speech normal Psych affect normal Assessment & Plan Assessment/Plan (1) Intractable pain: PLAN: Plan 1. Intractable pain from recent left tibial plateau fracture-patient's daughter has requested the patient go to either [facility] or [facility], secondary social studies teacher is involved with placing the patient. Patient will remain on Nubain and oxycodone for pain control. #2 left tibial plateau fracture-knee immobilizer will be kept on for 6 weeks, she will be nonweightbearing on that side #3 essential hypertension-patient will remain on her medication, medication will be adjusted as necessary #4 chronic depression-patient is on fluoxetine #5 fibromyalgia-patient uses gabapentin Total clinical time spent by myself addressing the patient's medical issues, reviewing all of her data, and collaborating with the patient's care team: 35 minutes Charges/Coding Visit Charges Inpatient E&M: 91028 Subs Hosp L2
[2023-09-16] MEDS: Gabapentin 600 MG Tablet 1200 MG PO (21:10)
[2023-09-16] MEDS: Cephalexin 250 MG Capsule PO (21:11)
[2023-09-16] MEDS: ALPRAZolam 0.25 MG Tablet PO (21:20)
[2023-09-16 21:21] VITALS: BP 145/61; PULSE 83; RESP 16; TEMP 36.8; O2SAT 97
[2023-09-17] MEDS: Nalbuphine 10 MG/ML Ampul IV ×2 (04:39→10:53)
[2023-09-17] MEDS: Acetaminophen 500 MG Tablet 1000 MG PO (04:40)
[2023-09-17 04:45] VITALS: BP 154/69; PULSE 73; RESP 16; TEMP 36.5; O2SAT 98
[2023-09-17] MEDS: FLUoxetine 20 MG Capsule PO (07:58)
[2023-09-17] MEDS: Lactobacillis Acidophilus 1 CAP PO (07:58)
[2023-09-17] MEDS: Multivitamins,Therapeutic Tablet 1 TABLET PO (07:58)
[2023-09-17] MEDS: Cholecalciferol (VIT D3) 25 MCG TABLET (1,000 UNITS) 50 MCG PO (07:58)
[2023-09-17] MEDS: Gabapentin 600 MG Tablet PO (08:03)
[2023-09-17] MEDS: ALPRAZolam 0.25 MG Tablet PO (08:05)
--- NOTE | 2023-09-17 08:49 | CASEMGMT ---
Discharge Planning Updates sent to [facility] via [employer]. Renetta Trammell DC Planning Asst.
--- NOTE | 2023-09-17 09:20 | PCM.TXEXTCAR ---
Diet Diet Order/Speech Therapy: 09/14/23 17:32 Diet: Regular - General Food consistency:: Regular Liquid Consistency:: Regular/Thin Is pt able to select menu?: Yes Routine Orders/Code Status Code Status: Full Code Therapies Weight Bearing: Non weight bearing (left leg-maintain knee immobilizer) Physical Therapy: Eval and Treat Occupational Therapy: Eval and Treat Problem/Diagnosis (1) Intractable pain: Status: Acute Code(s): R52 - Pain, unspecified (2) Closed fracture of tibial plateau: Status: Acute Code(s): S82.143A - Displaced bicondylar fracture of unspecified tibia, initial encounter for closed fracture Plan 1. Intractable pain from recent left tibial plateau fracture-patient's daughter has requested the patient go to either [facility] or [facility], vp digital marketing social media and crm is involved with placing the patient. Patient will remain on Nubain and oxycodone for pain control. #2 left tibial plateau fracture-knee immobilizer will be kept on for 6 weeks, she will be nonweightbearing on that side #3 essential hypertension-patient will remain on her medication, medication will be adjusted as necessary #4 chronic depression-patient is on fluoxetine #5 fibromyalgia-patient uses gabapentin Total clinical time spent by myself addressing the patient's medical issues, reviewing all of her data, and collaborating with the patient's care team: 35 minutes Allergies/Procedures Done in Hospital Allergies codeine Allergy (Unknown, Verified 09/14/23 12:54) hallucinations Sulfa (Sulfonamide Antibiotics) Allergy (Unknown, Verified 09/14/23 12:54) Rash atorvastatin Adverse Reaction (Unknown, Verified 09/14/23 12:54) muscle cramping Procedures: None Type of Care/Length of Stay Estimated LOS: Convalescent Care Less Than 30 days Type of Care Needed: Skilled Rehab Potential: Good Prognosis: Good Additional Orders/Day of Discharge H&P will serve as current which was dated: 09/14/23 Day of Discharge: 09/17/23 Discharge Plan Admission Admit Date/Time: 09/14/23 15:51 Primary Reason for Your Visit: left tibial plateau fracture Attending Provider: Del Gross Primary Care Provider: Sosa Vazquez Consulting Providers: Jigar Barnes; Roddy Masterson Discharge Orders/Prescriptions Prescriptions: New acetaminophen 500 mg Tablet 1,000 mg PO Q8 Qty: 0 0RF alprazolam 0.25 mg Tablet 0.25 mg PO TID PRN (Reason: anxiety) Qty: 10 0RF heparin (porcine) 5,000 unit/mL Solution 5,000 unit subcut Q12 Qty: 0 0RF oxycodone 5 mg Tablet 10 mg PO Q4H PRN PRN (Reason: Pain Score 4-10) 2 Days Qty: 10 0RF Artificial Tears(jj-ejli-jobe) 1-0.2-0.2 % Drops 2 drp EACH EYE Q1H PRN (Reason: DRY EYES) Qty: 0 0RF polyethylene glycol 3350 [GentleLax] 17 gram/dose powder 17 g PO BID Qty: 119 0RF Continued amlodipine 5 mg tablet 5 mg PO BID ascorbic acid (vitamin C) 500 mg tablet 500 mg PO BID cholecalciferol (vitamin D3) 25 mcg (1,000 unit) tablet 50 mcg PO BID clotrimazole-betamethasone 1-0.05 % cream 1 applic topical BID estradiol 0.01 % (0.1 mg/gram) cream 1 g vaginal Q OTHER DAY fluoxetine 20 mg capsule 20 mg PO BID Rx Instructions: administer in the morning and at noon/midday gabapentin 600 mg tablet 600 mg PO TID Probiotic 3 billion cell capsule 3,000 mmu cells PO DAILY Rx Instructions: administer with a meal magnesium oxide 500 mg magnesium tablet 500 mg PO DAILY melatonin 5 mg tablet 5 mg PO HS PRN (Reason: sleep) multivitamin Tablet 1 tab PO DAILY omeprazole 20 mg capsule,delayed release(DR/EC) 20 mg PO DAILY ondansetron HCl 4 mg tablet 4 mg PO Q6H PRN (Reason: nasuea) pravastatin 40 mg tablet 40 mg PO DAILY zinc acetate 50 mg (zinc) capsule 50 mg PO DAILY fluorometholone 0.1 % drops,suspension 1 drp ophthalmic (eye) BID d-mannose 500 mg capsule 1,000 mg PO BID cephalexin 250 mg capsule 250 mg PO DAILY Discontinued acetaminophen [Tylenol Arthritis Pain] 650 mg tablet extended release 650 mg PO Q12H alprazolam 0.25 mg tablet 0.25 mg PO TID PRN (Reason: anxiety) aspirin [Adult Low Dose Aspirin] 81 mg tablet,delayed release (DR/EC) 81 mg PO DAILY Referrals / Follow Up: Roddy Masterson MD [Med Staff - Active Staff] - See Referral Note (in two weeks) Sosa Vazquez, JOSELIN-C [Primary Care Provider] - Disposition Disposition (needs filled in before D/C Order can be placed): [facility] Facility (2) Closed fracture of tibial plateau Qualifiers: Encounter type: initial encounter Laterality: left Qualified Code(s): S82.142A - Displaced bicondylar fracture of left tibia, initial encounter for closed fracture
[2023-09-17 09:26] VITALS: O2SAT 94
--- NOTE | 2023-09-17 09:31 | PCM.DC.SUM ---
Providers Date of Admission: 09/14/23 Date of Discharge: 09/17/23 Primary Care Physician: Sosa Vazquez, BAUTISTA Consultations 09/15/23 14:42 Consult: Orthopedics Routine Consulting Provider: Roddy Masterson Reason for Consult: Tibial plateau fracture EMERGENT Consult: No MD Notified: Yes Date Notified: 09/15/23 Time Notified: 14:42 Method of Notification: Verbal Reason For Visit: INTRACTABLE PAIN Diagnosis Discharge Diagnosis (1) Intractable pain: Status: Acute Code(s): R52 - Pain, unspecified (2) Closed fracture of tibial plateau: Status: Acute Code(s): S82.143A - Displaced bicondylar fracture of unspecified tibia, initial encounter for closed fracture Qualifiers: Encounter type: initial encounter Laterality: left Qualified Code(s): S82.142A - Displaced bicondylar fracture of left tibia, initial encounter for closed fracture Plan 1. Intractable pain from recent left tibial plateau fracture and left fibular fracture-patient's daughter has requested the patient go to either [facility] or [facility], social media marketing specialist is involved with placing the patient. Patient will remain on Nubain and oxycodone for pain control. #2 left tibial plateau fracture-knee immobilizer will be kept on for 6 weeks, she will be nonweightbearing on that side #3 essential hypertension-patient will remain on her medication, medication will be adjusted as necessary #4 chronic depression-patient is on fluoxetine #5 fibromyalgia-patient uses gabapentin #6 proximal left fibular fracture Total clinical time spent by myself addressing the patient's medical issues, reviewing all of her data, and collaborating with the patient's care team: 35 minutes Medications at Discharge Home Medications amlodipine 5 mg tablet 5 mg PO BID blood pressure 08/20/23 ascorbic acid (vitamin C) 500 mg tablet 500 mg PO BID supplement 08/20/23 cholecalciferol (vitamin D3) 25 mcg (1,000 unit) tablet 50 mcg PO BID supplement 08/20/23 clotrimazole-betamethasone 1 %-0.05 % topical cream 1 applic topical BID preventative FOR UTI 08/20/23 estradiol 0.01% (0.1 mg/gram) vaginal cream 1 g vaginal Q OTHER DAY chronic uti 08/20/23 fluoxetine 20 mg capsule 20 mg PO BID depression 08/20/23 gabapentin 600 mg tablet 600 mg PO TID fibromyalgia 08/20/23 lactobacillus combination no.4 3 billion cell capsule (Probiotic) 3,000 mmu cells PO DAILY supplement 08/20/23 magnesium oxide 500 mg PO DAILY supplement 08/20/23 melatonin 5 mg tablet 5 mg PO HS PRN sleep 08/20/23 multivitamin 1 tab PO DAILY supplement 08/20/23 omeprazole 20 mg capsule,delayed release 20 mg PO DAILY gerd 08/20/23 ondansetron HCl 4 mg tablet 4 mg PO Q6H PRN nasuea 08/20/23 pravastatin 40 mg tablet 40 mg PO DAILY cholesterol 08/20/23 zinc acetate 50 mg (zinc) capsule 50 mg PO DAILY supplement 08/20/23 cephalexin 250 mg capsule 250 mg PO DAILY chronic uti 09/11/23 d-mannose 500 mg capsule 1,000 mg PO BID preventative for UTI 09/11/23 fluorometholone 0.1 % eye drops,suspension 1 drp ophthalmic (eye) BID dry eyes 09/11/23 acetaminophen 500 mg tablet 1,000 mg (2 x 500 mg) PO Q8 #0 tabs 09/17/23 alprazolam 0.25 mg tablet 0.25 mg PO TID PRN anxiety #10 tabs 09/17/23 heparin (porcine) 5,000 unit/mL injection solution 5,000 unit subcut Q12 #0 mL 09/17/23 oxycodone 5 mg tablet 10 mg (2 x 5 mg) PO Q4H PRN PRN Pain Score 4-10 2 days #10 tabs 09/17/23 peg [id number] 1 %-0.2 %-0.2 % eye drops (Artificial Tears ([id number])) 2 drp EACH EYE Q1H PRN DRY EYES #0 mL 09/17/23 polyethylene glycol 3350 17 gram/dose oral powder (GentleLax) 17 g PO BID #119 grams 09/17/23 Hospital Course Operations None Procedures None Summary of Care Provided Minutes Spent on Discharge: 31 Hospital Course: This 82-year-old white female was seen in the emergency room at [facility] after being evaluated at another hospital and being released to home after she sustained a left tibial plateau fracture the day before. Workup in the emergency room included a CT of the left lower extremity, there is noted to be a proximal tibial fracture and a proximal fibular fracture. Patient was admitted to [place] [address], she was seen by PT and OT and her left knee was immobilized with a knee immobilizer. Patient was seen in consultation by orthopedic surgery who did not feel that it was necessary to have the patient undergo surgery. They recommended left knee immobilization x 6 weeks, patient consented to go to a intermediate facility and I had conversations with the patient's daughter who arrived from out of town. Patient's pain was controlled with IV Nubain and oxycodone. On 09/17/2023, patient was seen and examined,alert, oriented x3, no apparent distress, average body habitus and healthy appearing General Appearance: cooperative, well kempt and well developed Orientation / Consciousness: awake, oriented to person, oriented to place and oriented to time HEENT normocephalic, head/scalp atraumatic and moist oral mucous membranes Eyes PERRL, EOMs intact bilaterally and conjunctivae normal Neck supple, no JVD, thyroid normal and no carotid bruits General: trachea midline Resp normal respiratory effort, no retractions, no use of accessory muscles and clear to auscultation bilaterally Auscultation: Negative for rales, rhonchi or wheezes Cardio regular rate, regular rhythm, S1 normal heart sound, S2 normal heart sound, no murmurs, no rub and no gallops GI normal to inspection, nondistended, normoactive bowel sounds, soft to palpation, non-tender and non-distended Extremity Extremity Narrative: Patient's left leg is in a knee immobilizer, this was not removed for examination of the area Skin no rashes or lesions noted General Skin Exam: no breakdown Neuro oriented x3, CN's II-XII intact bilaterally, no focal motor deficits and no sensory deficits noted Sensorium / Orientation: awake and alert Speech: speech normal Psych affect normal Patient was discharged to intermediate facility on 09/17/2023 in stable condition. Weight / BMI Weight Weight: 61.915 kg Body Mass Index (BMI) 25.0 ABG / Lab / Microbiology Data 09/15/23 05:38 09/15/23 05:38 Meaningful Use Info Meaningful Use Meaningful Use Diagnoses (Choose all that apply): None applicable Ischemic Stroke Statin Dosing Therapy Reference: STATIN DOSE THERAPY REFERENCE: * Patients > 75 years receive moderate or high dose statin therapy. * Patients 75 years or YOUNGER should receive HIGH intensity statin dose unless contraindicated. You will be required to document reason for non-treatment if statin daily dose does not meet guidelines. HIGH DOSE STATIN THERAPY DAILY Atorvastatin > than or = to 40 mg Rosuvastatin > than or = to 20 mg Amlodipine + Atorvastatin > than or = to 2.5/40 mg Ezetimibe + Simvastatin 10/80 mg Simvastatin 80mg Discharge Plan Admission Admit Date/Time: 09/14/23 15:51 Primary Reason for Your Visit: left tibial plateau fracture Attending Provider: Del Gross Primary Care Provider: Sosa Vazquez Consulting Providers: Jigar Barnes; Roddy Masterson Discharge Orders/Prescriptions Prescriptions: New acetaminophen 500 mg Tablet 1,000 mg PO Q8 Qty: 0 0RF alprazolam 0.25 mg Tablet 0.25 mg PO TID PRN (Reason: anxiety) Qty: 10 0RF heparin (porcine) 5,000 unit/mL Solution 5,000 unit subcut Q12 Qty: 0 0RF oxycodone 5 mg Tablet 10 mg PO Q4H PRN PRN (Reason: Pain Score 4-10) 2 Days Qty: 10 0RF Artificial Tears(as-yevo-zanj) 1-0.2-0.2 % Drops 2 drp EACH EYE Q1H PRN (Reason: DRY EYES) Qty: 0 0RF polyethylene glycol 3350 [GentleLax] 17 gram/dose powder 17 g PO BID Qty: 119 0RF Continued amlodipine 5 mg tablet 5 mg PO BID ascorbic acid (vitamin C) 500 mg tablet 500 mg PO BID cholecalciferol (vitamin D3) 25 mcg (1,000 unit) tablet 50 mcg PO BID clotrimazole-betamethasone 1-0.05 % cream 1 applic topical BID estradiol 0.01 % (0.1 mg/gram) cream 1 g vaginal Q OTHER DAY fluoxetine 20 mg capsule 20 mg PO BID Rx Instructions: administer in the morning and at noon/midday gabapentin 600 mg tablet 600 mg PO TID Probiotic 3 billion cell capsule 3,000 mmu cells PO DAILY Rx Instructions: administer with a meal magnesium oxide 500 mg magnesium tablet 500 mg PO DAILY melatonin 5 mg tablet 5 mg PO HS PRN (Reason: sleep) multivitamin Tablet 1 tab PO DAILY omeprazole 20 mg capsule,delayed release(DR/EC) 20 mg PO DAILY ondansetron HCl 4 mg tablet 4 mg PO Q6H PRN (Reason: nasuea) pravastatin 40 mg tablet 40 mg PO DAILY zinc acetate 50 mg (zinc) capsule 50 mg PO DAILY fluorometholone 0.1 % drops,suspension 1 drp ophthalmic (eye) BID d-mannose 500 mg capsule 1,000 mg PO BID cephalexin 250 mg capsule 250 mg PO DAILY Discontinued acetaminophen [Tylenol Arthritis Pain] 650 mg tablet extended release 650 mg PO Q12H alprazolam 0.25 mg tablet 0.25 mg PO TID PRN (Reason: anxiety) aspirin [Adult Low Dose Aspirin] 81 mg tablet,delayed release (DR/EC) 81 mg PO DAILY Referrals / Follow Up: Roddy Masterson MD [Med Staff - Active Staff] - See Referral Note (in two weeks) Sosa Vazquez NP-C [Primary Care Provider] - Disposition Disposition (needs filled in before D/C Order can be placed): [facility] Facility Charges/Coding Visit Charges Inpatient E&M: 91721 Disch Hosp >30min
[2023-09-17] MEDS: Pantoprazole Sodium 40 MG Tablet PO (09:58)
[2023-09-17] MEDS: Magnesium Chloride 64 MG Delay Rel.Tablet 128 MG PO (09:58)
[2023-09-17] MEDS: amLODIPine 5 MG Tablet PO (09:58)
[2023-09-17] MEDS: Magnesium Hydroxide 30 ML UDC PO (09:58)
[2023-09-17] MEDS: Pravastatin 40 MG Tablet PO (09:59)
[2023-09-17] MEDS: Heparin Injection (Vial) 5,000 UNIT/ML VIAL 5000 UNIT SC (09:59)
[2023-09-17 10:00] VITALS: BP 114/53; PULSE 81; RESP 16; TEMP 37; O2SAT 93
--- NOTE | 2023-09-17 10:07 | CASEMGMT ---
Social Work SW met with pt to discuss advance directives.? Pt confirms she has completed a living will and health care POA naming Jes, daughter.? Pt notified that documents are not on file at [facility] and SW requested they be brought in for scanning into the EMR.? PARIS Carter
--- NOTE | 2023-09-17 10:08 | CASEMGMT ---
Social Work ? Physician updated and pt is ready for discharge today.? 7000 convalescent form completed in [facility] and sent along with discharge orders to [facility] via [facility].? Transportation arranged with [facility] for 11AM pickup via wheelchair van.? SW met with pt and they are agreeable to discharge plan as stated above.?Daughter, Jes, and bedside nurse notified of discharge time. Disposition:?[facility] , skilled level of care under convalescent stay. PARIS Carter
[2023-09-17 10:15] VITALS: BP 114/53; PULSE 81; RESP 16; TEMP 37; O2SAT 93
--- NOTE | 2023-09-17 10:17 | CASEMGMT ---
Discharge Planning Discharge orders, signed med list, and transport time sent to [facility] via [facility]. Physicians will transport patient by wheelchair at 11a. Nursing, SW, patient, and her daughter (Jes) updated. Renetta Trammell DC Planning Asst.
--- NOTE | 2023-09-17 10:17 | PHA.DC.MR.R ---
Pharmacy CT Med Reconciliation Pharmacy Service has performed discharge medication reconciliation for this patient. The patient's discharge medication list was reviewed for discrepancies and discrepancies were resolved. Medications at Discharge Home Medications amlodipine 5 mg tablet 5 mg PO BID blood pressure 08/20/23 ascorbic acid (vitamin C) 500 mg tablet 500 mg PO BID supplement 08/20/23 cholecalciferol (vitamin D3) 25 mcg (1,000 unit) tablet 50 mcg PO BID supplement 08/20/23 clotrimazole-betamethasone 1 %-0.05 % topical cream 1 applic topical BID preventative FOR UTI 08/20/23 estradiol 0.01% (0.1 mg/gram) vaginal cream 1 g vaginal Q OTHER DAY chronic uti 08/20/23 fluoxetine 20 mg capsule 20 mg PO BID depression 08/20/23 gabapentin 600 mg tablet 600 mg PO TID fibromyalgia 08/20/23 lactobacillus combination no.4 3 billion cell capsule (Probiotic) 3,000 mmu cells PO DAILY supplement 08/20/23 magnesium oxide 500 mg PO DAILY supplement 08/20/23 melatonin 5 mg tablet 5 mg PO HS PRN sleep 08/20/23 multivitamin 1 tab PO DAILY supplement 08/20/23 omeprazole 20 mg capsule,delayed release 20 mg PO DAILY gerd 08/20/23 ondansetron HCl 4 mg tablet 4 mg PO Q6H PRN nasuea 08/20/23 pravastatin 40 mg tablet 40 mg PO DAILY cholesterol 08/20/23 zinc acetate 50 mg (zinc) capsule 50 mg PO DAILY supplement 08/20/23 cephalexin 250 mg capsule 250 mg PO DAILY chronic uti 09/11/23 d-mannose 500 mg capsule 1,000 mg PO BID preventative for UTI 09/11/23 fluorometholone 0.1 % eye drops,suspension 1 drp ophthalmic (eye) BID dry eyes 09/11/23 acetaminophen 500 mg tablet 1,000 mg (2 x 500 mg) PO Q8 #0 tabs 09/17/23 alprazolam 0.25 mg tablet 0.25 mg PO TID PRN anxiety #10 tabs 09/17/23 heparin (porcine) 5,000 unit/mL injection solution 5,000 unit subcut Q12 #0 mL 09/17/23 oxycodone 5 mg tablet 10 mg (2 x 5 mg) PO Q4H PRN PRN Pain Score 4-10 2 days #10 tabs 09/17/23 peg [id number] 1 %-0.2 %-0.2 % eye drops (Artificial Tears ([id number])) 2 drp EACH EYE Q1H PRN DRY EYES #0 mL 09/17/23 polyethylene glycol 3350 17 gram/dose oral powder (GentleLax) 17 g PO BID #119 grams 09/17/23
== END 2023-09-17 11:13 | disposition skilled nursing facility (03) | DRG 563 ==
LOC: ED 16:02 → MS3 17:03
PROVIDERS: Nurse Practitioner; Admitting Provider Internal Medicine; Emergency Provider Emergency Medicine; PCP Nurse Practitioner Family; Visit Provider Internal Medicine
DX: S82.142A Displaced bicondylar fracture of left tibia, initial encounter for closed fracture (principal); E78.5 Hyperlipidemia, unspecified; F32.A Depression, unspecified; I10 Essential (primary) hypertension; S82.832A Other fracture of upper and lower end of left fibula, initial encounter for closed fracture; W10.9XXA Fall (on) (from) unspecified stairs and steps, initial encounter; M79.7 Fibromyalgia; I25.10 Atherosclerotic heart disease of native coronary artery without angina pectoris; K21.9 Gastro-esophageal reflux disease without esophagitis; R26.2 Difficulty in walking, not elsewhere classified; Y92.511 Restaurant or cafe as the place of occurrence of the external cause; Z79.82 Long term (current) use of aspirin; Z79.899 Other long term (current) drug therapy; Z87.891 Personal history of nicotine dependence
CPT/HCPCS: 36415; 73700; 80048; 85025; 85610; 93005; 97162; 97166; 99284; A4216; J2405

== ENCOUNTER → 2023-10-08 | Outpatient (REF) | payer MEDICARE, OTHER, SELFPAY ==
[2023-10-08 10:35] LABS: Hematocrit 38.4 % (37-47); Hemoglobin 12.1 g/dL (12.0-15.0); Mean Corp Hgb Conc 31.5 g/dL (32-36); Mean Corpuscular Hgb 32.1 pg (27.0-32.0); Mean Corpuscular Volume 101.9 fL (81-99); Mean Platelet Vol. 11.5 fl (6.2-12.0); Platelet Count 345 K/mm3 (150-450); RBC Distribution Width CV 13.1 % (11.6-14.6); RBC Distribution Width SD 49.2 fl (35.1-43.9); Red Blood Count 3.77 M/mm3 (4.2-5.4); White Blood Count 7.8 K/mm3 (4.4-11.0)
[2023-10-08 10:37] LABS: Anion Gap 5 (5-15); BUN 12 mg/dL (7-18); BUN/Creat Ratio 16.4 RATIO (10-20); Calcium,Total 9.2 mg/dL (8.5-10.1); Chloride 105 mmol/L (98-107); Cholesterol 131 mg/dL (200); Creatinine, Serum 0.73 mg/dL (0.55-1.02); EST Glomerular Filtration Rate 81 mL/min (>60); Est Glom Filt Rate - Afr Amer 98 mL/min (>60); Glucose 85 mg/dL (74-106); High Density Lipoprotein 67 mg/dL; Magnesium 2.5 mg/dL (1.6-2.6); Potassium 4.2 mmol/L (3.5-5.1); Sodium Level 140 mmol/L (136-145); Triglycerides 77 mg/dL; Very Low Density Lipoprotein 15 mg/dL (5-40)
== END ==
LOC: OLS.WCC 05:00
PROVIDERS: PCP Nurse Practitioner Family; Visit Provider Family Medicine
DX: Z79.899 Other long term (current) drug therapy (principal)
CPT/HCPCS: 36415; 80048; 80061; 83735; 85027

== ENCOUNTER 2024-01-13 11:00 | Outpatient (RCR) | payer MEDICARE, OTHER, SELFPAY ==
--- NOTE | 2023-12-16 16:48 | HP.PTEVAL ---
Patient's Visit Information Visit Information Visit Information: DESHAWN RAMOS is a 83 year old F referred to Physical Therapy by Dr. Roddy Masterson MD with a diagnosis of L fibula fracture. Date of Evaluation: 12/16/23 Physical Therapist: Juan Jose Rodriguez, PT, ATC Visit Plan Frequency: 2x /Week Duration: 4 Weeks Plan: L ankle strengthening and mobility, L quad and hamstring strengthening, balance training, core strengthening Subjective Subjective: Pt reports she fell and fractured her L leg September 13, 2023. Pt reports she was in a cast for the past 7 weeks and was NWBing, used a WW when ambulating. States she [place] in [place] [facility] 5 [facility] and had OT and PT while she was there; stated she also had home health for the past 2 weeks. Pt reports once she was allowed to [facility] she started to have L hip and L ankle pain. Pt reports she uses a cane when ambulating community distances. States she has difficulties with standing for long periods of time and standing in the shower; currently uses a shower chair. Pt reports she has increased L LE fatigue and weakness secondary to being immobilized. States she would like to get back to doing iADLs and going to the grocery store. Pt reports occasional numbness and tingling going down her legs secondary to neuropathy. Pt reports her pain is a 4/10 at rest and is a 10/10 at its worst. States her pain does wake her up at night. Pain L leg: Pain Intensity (Out of 10): 4 Pain Intensity Range: 10 Objective Objective: NEURO: sensation WNL bilat to light touch; DTR patellar and achilles 1/3 hypo reflexive ROM: R ankle DF= 6 deg, PF= 65 deg; L ankle DF= 6 deg, PF= 65 deg MMT: R ankle DF= 30, PF= 33; L ankle DF= 21, PF= 30 #F TU.55 sec Balance/Special Test Scores Lower Extremity Functional Score: 55 Goals Goal 1:: Pt will decrease L LE pain by 50% to aid with sleep. Goal Time Frame: 4-6 Weeks Goal 2:: Pt will increase L LE strength by 10 #F to aid with ambulation. Goal Time Frame: 4-6 Weeks Goal 3:: Pt will be able to ambulate without the use of an AD to aid with ambulating community distances. Goal Time Frame: 4-6 Weeks Goal 4:: Pt will increase L DF ROM by 10 deg to aid with stair negotiation. Goal Time Frame: 4-6 Weeks Rehabilitation Potential Physical Therapy Diagnosis: Decreased L ankle strength and DF Rehabilitation Potential: Good Anticipated Interventions Patient/Client Instruction: Educate patient on: Plan of Care Therapeutic Exercise to Include: Strength training, Balance training, Body mechanics and Dynamic Lumbar Stabilization For the Purpose of:: To decrease pain, To increase ROM, To improve muscle performance and motor function and To increase tolerance to activity/condition/position Text: Thank you for the opportunity to evaluate your patient. For Medicare and Medicare HMO plans, please review the plan of care and approve it. It will need to be FAXED BACK to us at [phone] for Medicare purposes. For Medicare only, by signing this I certify the plan of care. Please let me know if there are questions or concerns regarding this plan of care. Physician Signature: Date:
--- NOTE | 2024-03-03 13:05 | HP.PTDCSUM_ITS ---
Discharge Summary D/C summary: It has been my pleasure to treat DESHAWN RAMOS referred by Dr. Roddy Masterson MD, with the diagnosis of L fibula fracture for a total of 8 visit(s). Discharge Date: Please see the following information for a summary of their discharge status. Subjective Subjective: My leg still swells by the end of the day Pain L leg: Pain Intensity (Out of 10): 1 Overall Improvement % Improvement: 75 Objective Objective/Function: L LE pain still ranges from 1-4/10 MMT: L ankle DF= 25, PF= 39 #F L ankle DF ROM 4 degrees Pt is I with [facility] Goals Goal 1:: Pt will decrease L LE pain by 50% to aid with sleep. Goal Progress: Goal Met Goal 2:: Pt will increase L LE strength by 10 #F to aid with ambulation. Goal Progress: Goal Met Goal 3:: Pt will be able to ambulate without the use of an AD to aid with ambulating community distances. Goal Progress: Progressing Goal 4:: Pt will increase L DF ROM by 10 deg to aid with stair negotiation. Goal Progress: Progressing Plan Plan: Discharge to [facility] D/C Information d/c sentence: If there are questions or concerns regarding this patient's physical therapy, please feel free to call me at [phone]. Thank you for the referral of this patient. Sincerely, Juan Jose Rodriguez, PT, ATC Balance/Gait/Functional tests Balance/Special Test Scores Lower Extremity Functional Score: 72 Improvement % Improvement: 75
== END 2024-01-13 19:00 | disposition home or self-care (01) ==
LOC: PT 11:00
PROVIDERS: PCP Nurse Practitioner Family; Referring Provider Orthopaedic Surgery Orthopaedic Surgery of the Spine; Visit Provider Orthopaedic Surgery Orthopaedic Surgery of the Spine
DX: S82.839D Other fracture of upper and lower end of unspecified fibula, subsequent encounter for closed fracture with routine healing (principal)
CPT/HCPCS: 97110; 97140; 97161; 97530

== ENCOUNTER → 2024-03-30 | Outpatient (CLI) | payer MEDICARE, OTHER, SELFPAY ==
--- NOTE | 2024-03-30 12:47 | ECHOD_ITS ---
Reason For Study: AORTIC STENOSIS Procedure This was a 2D Doppler, Color Flow transthoracic echocardiogram. Myocardial strain analysis was performed in this exam to aid in the assessment of cardiac function. Exam performed in department. Left Ventricle Normal LV size. The left ventricular ejection fraction is 65 %. Stage 1 diastolic dysfunction. No regional wall motion abnormalities noted. Right Ventricle Normal RV size. Normal systolic function. Atria Normal left atrium. Normal right atrium. Mitral Valve There is mild mitral annular calcification. Tricuspid Valve Normal tricuspid valve. Mild tricuspid valve insufficiency. Aortic Valve Trisinus/trileaflet aortic valve. Moderate focal aortic valve calcification. Peak aortic valve gradient 40 mmHg. Mean aortic valve gradient 24 mmHg. Moderate aortic stenosis. Pulmonic Valve Normal pulmonic valve. Great Vessels Normal aortic root. The pulmonary artery is normal size. Normal inferior vena cava. Pericardium/Pleural No pericardial effusion. MMode/2D Measurements & Calculations LVIDd: 4.6 cm IVSd: 1.0 cm LVOT diam: 2.0 cm LVIDs: 2.5 cm LVPWd: 1.1 cm LVOT area: 3.1 cm2 RVDd: 2.7 cm FS: 45.9 % asc Aorta Diam: 3.2 cm LAV(MOD-bp): 44.8 ml LVAd ap4: 17.1 cm2 LAV(MOD-bp) Indexed: 27.9 ml/m2 LVLd ap4: 6.7 cm LAV(MOD-sp2): 41.5 ml EDV(MOD-sp4): 36.2 ml LAV(MOD-sp4): 45.3 ml EDV(sp4-el): 36.9 ml LVAs ap4: 9.0 cm2 LVLs ap4: 5.7 cm ESV(MOD-sp4): 12.8 ml ESV(sp4-el): 12.1 ml EF(MOD-sp4): 64.5 % EF(sp4-el): 67.1 % LVAd ap2: 19.2 cm2 SV(MOD-sp4): 23.4 ml SV(MOD-sp2): 27.2 ml LVLd ap2: 7.3 cm SI(MOD-sp4): 14.5 ml/m2 SI(MOD-sp2): 16.9 ml/m2 EDV(MOD-sp2): 42.5 ml EDV(sp2-el): 43.1 ml LVAs ap2: 10.4 cm2 LVLs ap2: 6.3 cm ESV(MOD-sp2): 15.2 ml ESV(sp2-el): 14.5 ml EF(MOD-sp2): 64.1 % SV(sp4-el): 24.8 ml Ao sinus diam: 2.[address] Junction: 2.6 cm LA dimension(2D): 4.2 cm LA A4 area: 16.8 cm2 RA A4 area: 9.2 cm2 TAPSE: 1.7 cm Time Measurements MV dec time: 0.18 sec Doppler Measurements & Calculations MV E max wei: 111.2 cm/sec Lat Peak E' Wei: 7.6 cm/sec Med Peak E' Wei: 6.5 cm/sec MV A max wei: 114.1 cm/sec E/E' lat: 14.7 E/E' med: 17.0 MV E/A: 0.97 MV dec slope: 607.2 cm/sec2 Ao V2 max: 314.2 cm/sec LV V1 max: 95.4 cm/sec Ao max P.6 mmHg LV V1 max P.6 mmHg Ao V2 mean: 231.8 cm/sec LV V1 mean P.1 mmHg Ao mean P.5 mmHg LV V1 mean: 69.0 cm/sec Ao V2 VTI: 77.8 cm LV V1 VTI: 21.7 cm AV (velocity ratio): 0.28 JAVIER(I,D): 0.86 cm2 JAVIER(V,D): 0.94 cm2 SV(LVOT): 66.8 ml PA V2 max: 68.0 cm/sec TR max wei: 219.8 cm/sec TR max P.3 mmHg ECHO/Echo Complete Interpretation Summary Normal LV size. The left ventricular ejection fraction is 65 %. Stage 1 diastolic dysfunction. Moderate focal aortic valve calcification. Mean aortic valve gradient 24 mmHg. There is mild mitral annular calcification. Moderate aortic stenosis. Ordering Physician: Flakita Palacios Referring Physician: Flakita Palacios Performed By: Lata Hanna RDCS
--- NOTE | 2024-03-30 12:47 | CDU_ITS ---
Reason For Study: Bilateral Carotid Bruit Rt. Velocities/BP Lt. Velocities/BP Prox CCA 68.8/11.7 cm/sec. Prox CCA 99.7/13.9 cm/sec. Mid CCA 76.5/16.0 cm/sec. Mid CCA 75.4/16.0 cm/sec. Dist CCA 60.0/14.9 cm/sec. Dist CCA 76.5/14.9 cm/sec. Prox ICA 84.7/18.9 cm/sec. Prox ICA 63.4/19.3 cm/sec. Mid ICA 91.3/25.5 cm/sec. Mid ICA 83.2/25.4 cm/sec. Dist ICA 93.1/30.3 cm/sec. Dist ICA 93.5/28.8 cm/sec. Rt. ICA/CCA = 1.2. Lt. ICA/CCA = 1.2. Prox ECA 69.5/11.0 cm/sec. Prox ECA 67.4/12.5 cm/sec. Rt. Vert. 110.7/19.4 cm/sec. Abnormal Waveform noted in Lt Vertebral A. Right Extracranial There is intimal thickening but no significant atherosclerotic plaque noted in the right common carotid artery. There is heterogeneous, irregular atherosclerotic plaque noted in the right internal carotid artery. There is heterogeneous, irregular atherosclerotic plaque noted in the right external carotid artery. Antegrade flow is noted in the right vertebral artery. Left Extracranial There is intimal thickening but no significant atherosclerotic plaque noted in the left common carotid artery. There is heterogeneous, irregular atherosclerotic plaque noted in the left internal carotid artery. The atherosclerotic plaque causes acoustic shadowing. The left internal carotid artery is very tortuous. There is heterogeneous, irregular atherosclerotic plaque noted in the left external carotid artery. Irregular waveform morphology noted, possible pre steal. Procedure Carotid Duplex 45420. This is a Carotid Duplex examination using B-mode, color flow and specral Doppler. The exam was diagnostic. Exam performed in department. VL/Carotid Duplex Ultrasound Interpretation Summary Mild (<50%) stenosis right extracranial internal carotid. Mild (<50%) stenosis left extracranial internal carotid. The Right vertebral is patent and antegrade. The Left vertebral is patent and antegrade with pre-steal morphology Ordering Physician: Flakita Palacios Referring Physician: Sosa Vazquez Performed By: Nitin Li RVT
== END | disposition home or self-care (01) ==
LOC: CVS 12:46
PROVIDERS: PCP Nurse Practitioner Family; Referring Provider Physician Assistant Medical; Visit Provider Physician Assistant Medical
DX: R09.89 Other specified symptoms and signs involving the circulatory and respiratory systems (principal); I35.0 Nonrheumatic aortic (valve) stenosis
CPT/HCPCS: 93306; 93880

== ENCOUNTER → 2024-04-17 | Outpatient (CLI) | payer MEDICARE, OTHER, SELFPAY ==
[2024-04-17 15:14] LABS: Color, Urine Yellow (Yellow); Glucose, Dipstick Normal (Normal); Ketone-Dipstick Negative (Negative); Leukocyte Esterase-Dipstick 25 /ul (Negative); Nitrite-Dipstick Negative (Negative); Occult Blood-Urine Negative /ul (Negative); Protein-Dipstick 15 mg/dl (Negative); Urine Bilirubin Dipstick Negative (Negative); Urine Clarity Cloudy (Clear); Urine Urobilinogen Normal (Normal)
[2024-04-17 15:20] LABS: Absolute Lymphocyte Count 1.75 X10^3/uL (0.83-4.51); Absolute Neutrophil Count 4.5 X10^3/uL (2.0-7.7); Basophil# 0.05 X10^3/uL; Basophil% 0.7 % (0-1); Eosinophil# 0.24 X10^3/uL; Eosinophils% 3.3 % (0-5); Hematocrit 38.7 % (37-47); Hemoglobin 12.5 g/dL (12.0-15.0); Lymphocyte # 1.75 X10^3/ul (0.83-4.51); Mean Corp Hgb Conc 32.3 g/dL (32-36); Mean Corpuscular Hgb 32.6 pg (27.0-32.0); Monocyte# 0.72 X10^3/uL; Monocyte% 9.9 % (0-10); NRBC Flagged by Analyzer 0 % (0-5); Neutrophil # 4.48 X10^3/uL (2.7-7.7); Neutrophil % 61.6 % (47-70); Platelet Count 292 K/mm3 (150-450); RBC Distribution Width CV 13.7 % (11.6-14.6); RBC Distribution Width SD 51.4 fl (35.1-43.9); Red Blood Count 3.83 M/mm3 (4.2-5.4); White Blood Count 7.3 K/mm3 (4.4-11.0)
[2024-04-17 15:36] LABS: Microalbumin:Creatinine Ratio 32.4 mg/g CRE (<30 mg/g CRE)
[2024-04-17 16:53] LABS: Vitamin B12 555 pg/mL (211-911); Vitamin D,25 Hydroxy 55.9 ng/mL
[2024-04-17 16:54] LABS: ALB/GLOB Ratio 1.1 RATIO (0.9-2.4); AST(SGOT) 23 U/L (15-37); Alanine Aminotransfer ALT/SGPT 24 U/L (13-56); Albumin, Serum 3.8 g/dL (3.2-5.0); Alkaline Phosphatase 77 U/L (45-117); Anion Gap 9 (5-15); BUN 14 mg/dL (7-18); BUN/Creat Ratio 19.4 RATIO (10-20); Calcium,Total 9.2 mg/dL (8.5-10.1); Chloride 102 mmol/L (98-107); Cholesterol 170 mg/dL (200); Creatinine, Serum 0.72 mg/dL (0.55-1.02); EST Glomerular Filtration Rate 82 mL/min (>60); Est Glom Filt Rate - Afr Amer 99 mL/min (>60); Globulin 3.5 g/dL (2.2-4.2); Glucose 83 mg/dL (74-106); High Density Lipoprotein 105 mg/dL; Protein, Total 7.3 g/dL (6.4-8.2); Sodium Level 137 mmol/L (136-145); Triglycerides 44 mg/dL; Very Low Density Lipoprotein 9 mg/dL (5-40)
== END | disposition home or self-care (01) ==
LOC: MTLAB 11:36
PROVIDERS: PCP Nurse Practitioner Family; Referring Provider Nurse Practitioner Family; Visit Provider Nurse Practitioner Family
DX: I10 Essential (primary) hypertension (principal); D64.9 Anemia, unspecified; E78.2 Mixed hyperlipidemia; E55.9 Vitamin D deficiency, unspecified
CPT/HCPCS: 36415; 80053; 80061; 81002; 82043; 82306; 82570; 82607; 82746; 85025

== ENCOUNTER → 2024-05-14 | Outpatient (CLI) | payer MEDICARE, OTHER, SELFPAY ==
--- NOTE | 2024-05-14 12:20 | BD_ITS ---
PROCEDURE: DEXA BONE DENSITY STUDY REASON FOR EXAM: F, age 83 y/o . Postmenopausal. TECHNIQUE: DEXA scan of the lumbar spine and both hips. COMPARISON: None. FINDINGS: Lumbar Spine (L1-L4): g/cm2 (1.123)/T-score (1.0)/Z-score (3.7) findings are suggestive of normal with a low fracture risk. Left Femur Total: g/cm2 (0.561)/T-score (-3.1)/Z-score (-0.9) Left Femoral Neck: g/cm2 (0.531)/T-score (-2.9)/Z-score (-0.5) Right Femur Total: g/cm2 (0.648)/T-score (-2.4)/Z-score (-0.2) Right Femoral Neck: g/cm2 (0.579)/T-score (-2.4)/Z-score (0.0) BD/Dexa Bone Density Study IMPRESSION: The patient is considered osteoporotic as outlined below according to [employer] (WHO) criteria with a high fracture risk. Reading Location: [id number]
== END | disposition home or self-care (01) ==
LOC: OPBD 12:17
PROVIDERS: PCP Nurse Practitioner Family; Referring Provider Nurse Practitioner Family; Visit Provider Nurse Practitioner Family
DX: Z13.820 Encounter for screening for osteoporosis (principal); Z78.0 Asymptomatic menopausal state
CPT/HCPCS: 77080

== ENCOUNTER 2024-07-02 09:55 | Day surgery (SDC) | payer MEDICARE, OTHER, SELFPAY ==
--- NOTE | 2024-06-25 15:46 | PAT.ANESEVAL ---
Pre-Assessment Diagnosis/Proposed Procedure Planned Operative Procedure(s): AXONICS STAGE 1 Anesthesia History Anesthesia History - senior major gifts officer: Anesthesia History - senior major gifts officer Hx Hospitalization Yes: 09/2023 FOR FX LEG 06/25/24 11:01 Any Problems With Anesthesia No 06/25/24 11:01 Cholinesterase deficiency No 06/25/24 11:01 You/Your Family Experience No 06/25/24 11:01 fever (hyperthermia) with Relationship Recent Exposure to Contagious Disease Does patient have nerve No 06/25/24 11:01 stimulator Patient instructed to have device shut off --Does patient have Pacemaker or ICD? When Was Last Pacemaker Check QUESTION #4 FULL TEXT: You/Your Family Experience fever (hyperthermia) with Anesthesia Last Oral Intake Last Oral intake: Last Oral Intake NPO since Meds taken in AM with sips of water? Meds patient instructed to take am of surgery PONV PONV - senior major gifts officer: PONV - senior major gifts officer Female Yes 06/25/24 11:01 HX of Motion Sickness No 06/25/24 11:01 HX of N/V After Surgery No 06/25/24 11:01 Non-Smoker Yes 06/25/24 11:01 Duration of Surgery greater No 06/25/24 11:01 than 60 minutes Number of Risk Factors 2 06/25/24 11:01 PONV Score Moderate Risk 06/25/24 11:01 Height & Weight Height & Weight: Anesthesia: Height & Weight Height 5 ft 2 in 04/13/24 12:39 Respiratory Assessment Respiratory Assessment - senior major gifts officer: Respiratory Tract Infection Hx - senior major gifts officer Hx Respiratory Tract Infection Yes: 1 WEEK AGO URI/COUGHING 06/25/24 11:01 /NO FEVER STOP Sleep Apnea STOP Sleep Apnea - senior major gifts officer: STOP Sleep Apnea - senior major gifts officer Hx Hypertension Yes: CONTROLLED WITH MED 06/25/24 11:01 Hx Sleep Apnea No 06/25/24 11:01 CPAP BIPAP Do you snore loudly (louder No 06/25/24 11:01 than talking or can be heard Do you often feel tired/ Yes 06/25/24 11:01 fatigued/ sleepy during daytime? Has anyone observed you stop No 06/25/24 11:01 breathing during sleep? STOP Results Positive 06/25/24 11:01 QUESTION #5 FULL TEXT : Do you snore loudly (louder than talking or can be heard through closed doors)? Tobacco Use History Tobacco Use History - senior major gifts officer: Tobacco Use History - senior major gifts officer Tobacco Use Smoking Status Former smoker 06/25/24 11:01 Hx Tobacco Use No 06/25/24 11:01 Years Smoking Packs Smoked per Day Smoking Cessation Date was No - quit smoking greater 06/25/24 11:01 within the last 15 years than 15 years ago Hx Smoking Cessation Date 03/04/86 06/25/24 11:01 Hx Smoking Cessation Counseling Hematologic Medial History Hematologic Hx - senior major gifts officer: Hematologic Medical Hx - shank threader Hx of Blood Transfusion No 06/25/24 11:01 Hx of Transfusion in last 3 No 06/25/24 11:01 Months Date of Last Transfusion (if within last 3 months) Ever experience any problems No 06/25/24 11:01 with transfusion(s)? Specify any problems Hx of Preganancy in last 3 No 06/25/24 11:01 Months Nurse Filling Out Transfusion DSCHRIBER 06/25/24 11:01 & Questions: Date: 06/25/24 06/25/24 11:01 Time: 11:04 06/25/24 11:01 Patient unable to answer at this time (ie. confused, unrespo /Reproduction History /Reproductive History - senior major gifts officer: /Reproductive Hx- senior major gifts officer Hx Now No 06/25/24 11:01 Gestational Age (in weeks): EDC: Hx Hx Para Hx Section SAB No 06/25/24 11:01 PFSH Medical History (Updated 06/25/24 @ 11:12 by Clarissa Chowdary) Loss of hearing Wears glasses Wears partial dentures Post-menopausal Alcohol use Arthritis Bladder disease Sepsis Easy bruising Back pain Migraine headache Brain fog History of hiatal hernia History of ulceration History of IBS Gastric reflux Former smoker Leg cramps History of edema History of echocardiogram Cardiology follow-up encounter Aortic stenosis Heart murmur Essential hypertension Insomnia Hyperlipidemia GERD (gastroesophageal reflux disease) Fibromyalgia H/O esophageal spasm Bilateral carotid artery disease Atherosclerotic heart disease of tribe coronary artery without angina pectoris Anxiety and depression Home Medications ?Medication ?Instructions ?Recorded ?Last Taken ?Type amlodipine 5 mg tablet 5 mg PO BID blood pressure 08/20/23 Unknown History estradiol 0.01% (0.1 mg/gram) 1 g vaginal Q OTHER DAY chronic uti 08/20/23 Unknown History vaginal cream gabapentin 600 mg tablet 600 mg PO TID fibromyalgia 08/20/23 Unknown History melatonin 5 mg tablet 5 mg PO HS PRN sleep 08/20/23 Unknown History multivitamin 1 tab PO DAILY supplement 08/20/23 Unknown History pravastatin 40 mg tablet 40 mg PO DAILY cholesterol 08/20/23 Unknown History fluoxetine 20 mg capsule 20 mg PO BID depression 12/10/23 Unknown History acetaminophen 650 mg 1,300 mg PO QHS 06/25/24 Unknown History tablet,extended release alprazolam 0.25 mg tablet 0.25 mg PO BID anxiety 06/25/24 Unknown History ascorbic acid 1,000 1 ea PO DAILY 06/25/24 Unknown History ya-jxuqnovymtag-ctnprbwo powder effervescent pack (Emergen-C) aspirin 81 mg tablet,delayed 81 mg PO DAILY 06/25/24 Unknown History release (Adult Aspirin Regimen) cranberry extract 500 pn-d-weqteuc 2 tab PO DAILY 06/25/24 Unknown History 50 mg chewable tablet pantoprazole 40 mg tablet,delayed 40 mg PO DAILY 06/25/24 Unknown History release polyethylene glycol 3350 17 17 g PO BID PRN constipation 06/25/24 Unknown History gram/dose oral powder (GentleLax) Allergy/AdvReac Type Severity Reaction Status Date / Time codeine Allergy Unknown hallucinati Verified 06/25/24 10:53 ons Sulfa (Sulfonamide Allergy Unknown Rash Verified 06/25/24 10:53 Antibiotics) atorvastatin AdvReac Unknown muscle Verified 06/25/24 10:53 cramping Family History Father Heart disease age 49 Mother Heart disease age 76 Brother Heart disease age 60 Brother Myocardial infarction Surgical History (Updated 06/25/24 @ 11:12 by Clarissa Chowdary) History of back surgery History of esophagogastroduodenoscopy (EGD) H/O arthroscopic knee surgery History of colonoscopy History of dilatation and curettage History of tonsillectomy History of cholecystectomy History of hysterectomy Social History Smoking Status: Former smoker how long ago did patient quit smokin alcohol intake: current alcohol intake frequency: 0-2 drinks per day Alcohol type: wine substance use type: does not use caffeine: Yes Audit: Pertinent Findings Pertinent Findings EKG Perinent findings: September 16, 2023. Normal sinus rhythm. Echo (EF%) pertinent findings: March 30, 2024. Ejection fraction 65%. Moderate aortic stenosis is noted. Peak aortic valve gradient is 40 mmHg. Mean aortic valve gradient is 24 mmHg. Consult pertinent findings: March 11, 2024. Eli BELL. 1. 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 Patient is on statins and blood pressure medications she is aerobically active walks 40 minutes a day for 5-6 times a week and denies anginal symptoms. 2. Nonrheumatic aortic valve stenosis?chronic-last echocardiogram had a peak gradient of 29. She denies any signs or symptoms of significant aortic stenosis. Will repeat echo to evaluate stability. (See echo above). 3. Hypertension-chronic?controlled. 4. Carotid rxgqc-ycubo-rkznndyzk carotid bruits left greater than right. Will get a carotid duplex. (See below). Additional pertinent findings: Carotid duplex scan. March 30, 2024. Mild less than 50% stenosis of the right and left extracranial internal carotids Recommendation Anesthesia Recommendation Anesthesia recommendation: OPTIMIZED for anesthesia (Patient has moderate aortic stenosis. Need to avoid tachycardia and decreased blood pressure. Drug of choice is phenylephrine.)
[2024-07-02] VITALS (11 sets, daily range): BP systolic 86–114; BP diastolic 54–71; PULSE 74–97; RESP 16; TEMP 36.3–36.7; O2SAT 93–98; BMI 25.8
[2024-07-02] MEDS: Lactated Ringers 1,000 ML 15 ML IV (10:54)
[2024-07-02] MEDS: Vancomycin IV 1,000 MG/200 ML BAG 200 MG IV (10:55)
--- NOTE | 2024-07-02 11:28 | PRE.ANES_ITS ---
ASA Classification* ASA Classification ASA Classification: 3 Assessment & Plan Anesthesia* Anesthesia Assessment Anesthesia Assessment: Discussed sedation and/or anesthesia options, risks, benefits, and alternatives with patient/parents/legal guardian/POA. Questions invited. The patient/parents/legal guardian/POA seems to understand and agrees to proceed with anesthesia plan. Reviewed the physical assessment, medical history, allergy history and patient home medications list prior to surgery/procedure/anesthetic and documented any changes. Performed airway and anesthesia risk assessments. Anesthesia Type Anesthesia Type: MAC (Patient with moderate aortic stenosis. Avoid high heart rates and low blood pressures. Phenylephrine is drug of choice.) History Source History Obtained from:: Patient and Chart Anesthesia Focused Assessment* Temperature: 97.6 F Pulse Rate: 74 Blood Pressure: 114/71 Respiratory Rate: 16 Pulse Ox: 93 Oxygen Delivery Method: Room Air Airway Assessment Mouth opens: >3 cm Mallampati Score: II Teeth Condition: Partial (patient has partials top and bottom. They are out.) Neck Range of motion (ROM): Limited ROM (Slight decrease in extension) Focused Labs Anesthesia Preop lab: CBC WBC 7.3 K/mm3 (4.4-11.0) 04/17/24 11:37 04/17/24 RBC 3.83 M/mm3 (4.2-5.4) L 04/17/24 11:37 04/17/24 Hgb 12.5 g/dL (12.0-15.0) 04/17/24 11:37 04/17/24 Hct 38.7 % (37-47) 04/17/24 11:37 04/17/24 Plt Count 292 K/mm3 (150-450) 04/17/24 11:37 04/17/24 CHEMISTRY Potassium 4.0 mmol/L (3.5-5.1) 04/17/24 11:37 04/17/24 Sodium 137 mmol/L (136-145) 04/17/24 11:37 04/17/24 Magnesium 2.5 mg/dL (1.6-2.6) 10/08/23 05:45 10/08/23 BUN 14 mg/dL (7-18) 04/17/24 11:37 04/17/24 Creatinine 0.72 mg/dL (0.55-1.02) 04/17/24 11:37 04/17/24 Glucose 83 mg/dL (74-106) 04/17/24 11:37 04/17/24 COAG PT 12.7 SECONDS (11.7-14.9) 09/14/23 13:21 Pre-Assessment Diagnosis/Proposed Procedure Planned Operative Procedure(s): AXONICS STAGE 1 Anesthesia History Anesthesia History - surveyor's assistant: Anesthesia History - surveyor's assistant Hx Hospitalization Yes: 09/2023 FOR FX LEG 06/25/24 11:01 Any Problems With Anesthesia No 06/25/24 11:01 Cholinesterase deficiency No 06/25/24 11:01 You/Your Family Experience No 06/25/24 11:01 fever (hyperthermia) with Relationship Recent Exposure to Contagious No 07/02/24 10:56 Disease Does patient have nerve No 06/25/24 11:01 stimulator Patient instructed to have device shut off --Does patient have Pacemaker No 07/02/24 10:56 or ICD? When Was Last Pacemaker Check QUESTION #4 FULL TEXT: You/Your Family Experience fever (hyperthermia) with Anesthesia Last Oral Intake Last Oral intake: Last Oral Intake NPO since 05:30 07/02/24 10:56 Meds taken in AM with sips of Yes 07/02/24 10:56 water? Meds patient instructed to take am of surgery Any additional information?: Yes Meds taken in AM with sips of water?: Yes PONV PONV - surveyor's assistant: PONV - surveyor's assistant Female Yes 06/25/24 11:01 HX of Motion Sickness No 06/25/24 11:01 HX of N/V After Surgery No 06/25/24 11:01 Non-Smoker Yes 06/25/24 11:01 Duration of Surgery greater No 06/25/24 11:01 than 60 minutes Number of Risk Factors 2 06/25/24 11:01 PONV Score Moderate Risk 06/25/24 11:01 Height & Weight Height & Weight: Anesthesia: Height & Weight Height 5 ft 07/02/24 10:56 Weight: 60 kg 07/02/24 10:56 Body Mass Index (BMI) 25.8 07/02/24 10:56 Respiratory Assessment Respiratory Assessment - surveyor's assistant: Respiratory Tract Infection Hx - surveyor's assistant Hx Respiratory Tract Infection Yes: 1 WEEK AGO URI/COUGHING 06/25/24 11:01 /NO FEVER STOP Sleep Apnea STOP Sleep Apnea - surveyor's assistant: STOP Sleep Apnea - surveyor's assistant Hx Hypertension Yes: CONTROLLED WITH MED 06/25/24 11:01 Hx Sleep Apnea No 06/25/24 11:01 CPAP BIPAP Do you snore loudly (louder No 06/25/24 11:01 than talking or can be heard Do you often feel tired/ Yes 06/25/24 11:01 fatigued/ sleepy during daytime? Has anyone observed you stop No 06/25/24 11:01 breathing during sleep? STOP Results Positive 06/25/24 11:01 QUESTION #5 FULL TEXT : Do you snore loudly (louder than talking or can be heard through closed doors)? Tobacco Use History Tobacco Use History - surveyor's assistant: Tobacco Use History - surveyor's assistant Tobacco Use Smoking Status Former smoker 06/25/24 11:01 Hx Tobacco Use No 06/25/24 11:01 Years Smoking Packs Smoked per Day Smoking Cessation Date was No - quit smoking greater 06/25/24 11:01 within the last 15 years than 15 years ago Hx Smoking Cessation Date 03/04/86 06/25/24 11:01 Hx Smoking Cessation Counseling Hematologic Medial History Hematologic Hx - surveyor's assistant: Hematologic Medical Hx - executive associate Hx of Blood Transfusion No 06/25/24 11:01 Hx of Transfusion in last 3 No 06/25/24 11:01 Months Date of Last Transfusion (if within last 3 months) Ever experience any problems No 06/25/24 11:01 with transfusion(s)? Specify any problems Hx of Preganancy in last 3 No 06/25/24 11:01 Months Nurse Filling Out Transfusion DSCHRIBER 06/25/24 11:01 & Questions: Date: 06/25/24 06/25/24 11:01 Time: 11:04 06/25/24 11:01 Patient unable to answer at this time (ie. confused, unrespo /Reproduction History /Reproductive History - surveyor's assistant: /Reproductive Hx- surveyor's assistant Hx Now No 06/25/24 11:01 Gestational Age (in weeks): EDC: Hx Hx Para Hx Section SAB No 06/25/24 11:01 Active Medications Active Medications: Current Medications Generic Name Dose Route Start Last Admin Trade Name Freq PRN Reason Stop Dose Admin Vancomycin HCl 1,000 mg in 200 mls @ 200 mls/hr 07/02/24 11:35 07/02/24 10:55 Vancomycin IV 07/02/24 12:34 200 mls/hr X1 ONE Administration Lactated Ringer's 1,000 mls @ 15 mls/hr 07/02/24 10:15 07/02/24 10:54 IV 15 mls/hr .Q48H PETER Administration PFSH Medical History Loss of hearing Wears glasses Wears partial dentures Post-menopausal Alcohol use Arthritis Bladder disease Sepsis Easy bruising Back pain Migraine headache Brain fog History of hiatal hernia History of ulceration History of IBS Gastric reflux Former smoker Leg cramps History of edema History of echocardiogram Cardiology follow-up encounter Aortic stenosis Heart murmur Essential hypertension Insomnia Hyperlipidemia GERD (gastroesophageal reflux disease) Fibromyalgia H/O esophageal spasm Bilateral carotid artery disease Atherosclerotic heart disease of [place] coronary artery without angina pectoris Anxiety and depression Home Medications ?Medication ?Instructions ?Recorded ?Last Taken ?Type amlodipine 5 mg tablet 5 mg PO BID blood pressure 0 08/20/23 07/02/24 History estradiol 0.01% (0.1 mg/gram) 1 g vaginal Q OTHER DAY chronic uti 08/20/23 07/01/24 History vaginal cream gabapentin 600 mg tablet 600 mg PO TID fibromyalgia 0 08/20/23 07/02/24 History melatonin 5 mg tablet 5 mg PO HS PRN sleep 4 07/01/24 History multivitamin 1 tab PO DAILY supplement 07/01/24 History pravastatin 40 mg tablet 40 mg PO DAILY cholesterol 0 08/20/23 07/01/24 History fluoxetine 20 mg capsule 20 mg PO BID depression 10/0 10/2507/02/24 History acetaminophen 650 mg 1,300 mg PO QHS 06/25/24 Unk nown History tablet,extended release alprazolam 0.25 mg tablet 0.25 mg PO BID anxiety 06/2507/02/24 History ascorbic acid 1,000 1 ea PO DAILY 06/25/2407/01 History jd-hvrmlqhzzxxt-gojudhdi powder effervescent pack (Emergen-C) aspirin 81 mg tablet,delayed 81 mg PO DAILY 06/25/24 0 07/02/24 History release (Adult Aspirin Regimen) cranberry extract 500 hp-k-gamiqiz 2 tab PO DAILY 06/0307/01/24 History 50 mg chewable tablet pantoprazole 40 mg tablet,delayed 40 mg PO DAILY 06/2507/02/24 History release polyethylene glycol 3350 17 17 g PO BID PRN constipati on 06/25/24 Unknown History gram/dose oral powder (GentleLax) Allergy/AdvReac Type Severity Reaction Status Date / Time codeine Allergy Unknown hallucinati Verified 07/02/24 10:52 ons Sulfa (Sulfonamide Allergy Unknown Rash Verified 07/02/24 10:52 Antibiotics) atorvastatin AdvReac Unknown muscle Verified 07/02/24 10:52 cramping Family History Father Heart disease age 49 Mother Heart disease age 76 Brother Heart disease age 60 Brother Myocardial infarction Surgical History History of back surgery History of esophagogastroduodenoscopy (EGD) H/O arthroscopic knee surgery History of colonoscopy History of dilatation and curettage History of tonsillectomy History of cholecystectomy History of hysterectomy Social History Smoking Status: Former smoker how long ago did patient quit smokin alcohol intake: current alcohol intake frequency: 0-2 drinks per day Alcohol type: wine substance use type: does not use caffeine: Yes Review of Systems (Anesthesia) ROS Narrative System reviewed and no additional complaints, except as documented.
--- NOTE | 2024-07-02 11:43 | EX.PCM.DISCH ---
Discharge Instructions Diet Discharge Diet: No restrictions Activity Discharge Activity: - (No shower, no tub bathing, no swimming, no hot tubs) May resume sexual activity in: 6 weeks Additional Activity Instructions:: No exercise, lifting over 10 pounds, no strenuous activity, limit bending pushing and pulling Dressing / Incision Call your doctor if your incision/area has: Continuous Slow Oozing, Sudden Increased Bleeding, Increased Pain/ Swelling and Foul Smelling Discharge Call your doctor if you observe: Fever of 101 or Higher, Inability to urinate and Inability to have a bowel movement Change Dressing in: leave in place till F/U Remove Dressing in: leave in place till F/U Cleanse incision/area with: Keep Dressing Clean & Dry Follow Up Care Please Follow Up With: Rivka Del Toro MD When: She has an appointment to be seen in the office next week. Test Results: Test results from this visit will be discussed in further detail at your follow-up appointment, if applicable. Discharge Plan Admission Attending Provider: Rivka Del Toro Primary Care Provider: Sosa Vazquez Instructions Print Language: Urdu Discharge Orders/Prescriptions Prescriptions: New oxycodone-acetaminophen 5-325 mg tablet 1 tab PO Q8H PRN (Reason: pain) 3 Days Qty: 10 0RF cephalexin 500 mg capsule 500 mg PO Q12 3 Days Qty: 6 0RF Continued amlodipine 5 mg tablet 5 mg PO BID estradiol 0.01 % (0.1 mg/gram) cream 1 g vaginal Q OTHER DAY gabapentin 600 mg tablet 600 mg PO TID melatonin 5 mg tablet 5 mg PO HS PRN (Reason: sleep) multivitamin Tablet 1 tab PO DAILY pravastatin 40 mg tablet 40 mg PO DAILY fluoxetine 20 mg capsule 20 mg PO BID Rx Instructions: administer in the morning and at noon/midday pantoprazole 40 mg tablet,delayed release (DR/EC) 40 mg PO DAILY acetaminophen 650 mg tablet extended release 1,300 mg PO QHS Emergen-C 1,000 mg powder effervescent in packet 1 ea PO DAILY cranberry kobykdh-n-foxycwp 500-50 mg tablet,chewable 2 tab PO DAILY aspirin [Adult Aspirin Regimen] 81 mg tablet,delayed release (DR/EC) 81 mg PO DAILY alprazolam 0.25 mg Tablet 0.25 mg PO BID polyethylene glycol 3350 [GentleLax] 17 gram/dose powder 17 g PO BID PRN (Reason: constipation) Referrals / Follow Up: Sosa Vazquez, [employer]CE[employer] EXPORT ACCOUNT MANAGER-C [Primary Care Provider] - Disposition Disposition (needs filled in before D/C Order can be placed): Home, Self Care
--- NOTE | 2024-07-02 11:47 | OP.PCM_ITS ---
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: No Type of Anesthesia: MAC RN Documented Start/Stop Times: Operation Date: 07/02/24 11:35 Case Time Into Pre-Op 07/02/24 10:08 Anesthesia Start 07/02/24 14:01 Into Room 07/02/24 14:01 Procedure End 07/02/24 14:48 Anesthesia End 07/02/24 14:51 Out of Room 07/02/24 14:51 Into Recovery 07/02/24 14:52 Into Phase II Recovery 07/02/24 15:16 Out of Recovery 07/02/24 15:16 Out of Phase II 07/02/24 16:16 Procedure Start Time: 14:01 Procedure Stop Time: 14:48 Select all DRAINS/GRAFTS/IMPLANTS that apply: Implanted device Implanted device details: Axonics lead and lead extension Estimated Blood Loss: 10cc Specimen collected: No Description of surgery: The patient is an 83-year-old female with findings of neurogenic bladder with incomplete bladder emptying on urodynamics as well as history. She presents for a trial of Axonics stage I. Informed consent was obtained. She was taken to the operating room placed in a prone position on the operating room table. Anesthesia monitored the head, neck, airway, IV access and vital signs throughout the case. She was appropriately padded and secured to the table. Once anesthesia was appropriately administered, she was prepped and draped in usual sterile fashion. Using fluoroscopic evaluation, the outline of her anatomy was drawn onto her skin with a marker. The area overlying the entrance into her S3 foramen was infiltrated with local anesthetic on the right side. A needle was inserted through the skin into the S3 foramen and stimulated with the battery. John Paul response and toe flexion was seen. The guidewire was passed through the needle which was then removed. A skin incision was made with the 11 blade surrounding the guidewire. The dilator was then passed over the guidewire and the obturator was removed. The lead was inserted into the dilator sheath and positioned as seen on fluoroscopy. All 4 leads were tested and there was good response. The lead was then deployed by removal of the sheath. Using the tunneling device, the lead was moved into the pocket site where it was inserted into the lead extension and secured appropriately. The lead extension was then tunneled to the contralateral side. The remaining lead was placed into the pocket which was closed using 3-0 interrupted Vicryl suture and followed by 4-0 subcuticular Monocryl closure and skin glue. The lead insertion site was closed similarly. The lead extension was attached to the temporary battery which was secured to her back using an OpSite and cloth tape. She was then awakened and taken to the recovery room in good condition. There were no complications during this procedure. Surgical Findings: Lead with good stimulation on all 4 parts Complications Complications: No Admit VTE Documentation VTE Present on Admission: No VTE Mechan Device Prophylaxis: None VTE Pharm Prophylaxis ordered?: No Reason prophylaxis not ordered: Treatment Not Indicated
--- NOTE | 2024-07-02 14:06 | RAD_ITS ---
PROCEDURE: PELVIS 1 OR 2 VIEWS 07/02/2024 REASON FOR EXAM: AXONICS, STAGE 1 TECHNIQUE: 4 fluoroscopic images of the pelvis were provided. COMPARISON: None. FINDINGS: Limited images of the pelvis during a procedure were provided for evaluation. Initial image demonstrates needle within the lower sacral bone. Later on images demonstrate what appears to be pain stimulator strips. There are surgical clips overlying the pelvis. Correlate clinically and please see full dictation note by the proceduralist. RAD/Pelvis 1 or 2 Views IMPRESSION: Please see note by the proceduralist. Reading Location: [id number]
[2024-07-02] MEDS: Lidocaine 1% /Epi 1:100 (20ml) 20 ML Vial (14:36)
--- NOTE | 2024-07-02 14:55 | PCM.POST.ANE ---
Anesthesia: Postop Eval I Current Vital Signs Temperature: 97.3 F Pulse Rate: 94 Blood Pressure: 93/64 Respiratory Rate: 16 Pulse Ox: 96 Oxygen Delivery Method: Room Air Assessment Airway patent: Yes Spontaneous unlabored respirations: Yes Mental status: Awake and Calm nausea: No Vomiting: No Anesthesia Complication: No Fluid Hydration Crystalloid volume administer (ml): 300 Total IV fluid infused: 300 Progress Note Anesthesia document: Postop Eval 1 completed: Yes
--- NOTE | 2024-07-02 15:39 | POSTOPAN2_ITS ---
Anesthesia Postop Eval I Sum Postop Eval Completion status Anesthesia document: Postop Eval 1 completed: Yes Anesthesia Postop Eval I Summary Anesthesia Postop Eval I Summary: Anesthesia Postop Eval I: Assessment Summary Airway patent Yes 07/02/24 14:56 PRINTED CIRCUIT [email or web address] Spontaneous unlabored Yes 07/02/24 14:56 PRINTED CIRCUIT [email or web address] respirations Mental status Awake,Calm 07/02/24 14:56 PRINTED CIRCUIT [email or web address] nausea No 07/02/24 14:56 PRINTED CIRCUIT [email or web address] Vomiting No 07/02/24 14:56 PRINTED CIRCUIT [email or web address] Anesthesia Postop Eval I: Fluid Summary Crystalloid volume administer 300 07/02/24 14:56 PRINTED CIRCUIT [email or web address] (ml) Colloids volume administered ( ml) Blood Product volume administered (ml) Total IV fluid infused 300 07/02/24 14:56 PRINTED CIRCUIT [email or web address] Anesthesia Postop Eval I: Summary Notes Anesthesia Complication No 07/02/24 14:56 PRINTED CIRCUIT [email or web address] Anesthesia Complication Comment: Post-operative progress note Anesthesia: Postop Eval II Evaluation Mental status: Awake and Calm Pain Level: 1 nausea: No Vomiting: No Complications Anesthesia Complication: No
--- NOTE | 2024-07-02 15:39 | PCM.POSTANE2 ---
Anesthesia Postop Eval I Sum Postop Eval Completion status Anesthesia document: Postop Eval 1 completed: Yes Anesthesia Postop Eval I Summary Anesthesia Postop Eval I Summary: Anesthesia Postop Eval I: Assessment Summary Airway patent Yes 07/02/24 14:56 [email or web address] Spontaneous unlabored Yes 07/02/24 14:56 PROFESSIONAL [email or web address] respirations Mental status Awake,Calm 07/02/24 14:56 PROFESSIONAL [email or web address] nausea No 07/02/24 14:56 PROFESSIONAL [email or web address] Vomiting No 07/02/24 14:56 PROFESSIONAL [email or web address] Anesthesia Postop Eval I: Fluid Summary Crystalloid volume administer 300 07/02/24 14:56 PROFESSIONAL [email or web address] (ml) Colloids volume administered ( ml) Blood Product volume administered (ml) Total IV fluid infused 300 07/02/24 14:56 PROFESSIONAL [email or web address] Anesthesia Postop Eval I: Summary Notes Anesthesia Complication No 07/02/24 14:56 [email or web address] [email or web address] Anesthesia Complication Comment: Post-operative progress note Anesthesia: Postop Eval II Evaluation Mental status: Awake and Calm Pain Level: 1 nausea: No Vomiting: No Complications Anesthesia Complication: No
== END 2024-07-02 16:16 | disposition home or self-care (01) ==
LOC: SDC 09:56 → AC 10:01
PROVIDERS: PCP Nurse Practitioner Family; Referring Provider Urology; Visit Provider Urology
PROC: (CPT 64581; principal; 2024-07-02 11:25)
DX: N31.9 Neuromuscular dysfunction of bladder, unspecified (principal); R39.14 Feeling of incomplete bladder emptying; R39.16 Straining to void; I10 Essential (primary) hypertension; I35.0 Nonrheumatic aortic (valve) stenosis; E78.5 Hyperlipidemia, unspecified; Z79.82 Long term (current) use of aspirin; Z79.899 Other long term (current) drug therapy; Z87.891 Personal history of nicotine dependence
CPT/HCPCS: 64581; 00630; 72170; 76000; C1778; C1787; C1883; J2405

== ENCOUNTER 2024-07-16 06:47 | Day surgery (SDC) | payer MEDICARE, OTHER, SELFPAY ==
--- NOTE | 2024-07-06 10:42 | PAT.ANESEVAL ---
Pre-Assessment Diagnosis/Proposed Procedure Planned Operative Procedure(s): AXONICS STAGE 2 Anesthesia History Anesthesia History - sourcing coordinator: Anesthesia History - sourcing coordinator Hx Hospitalization Yes: 09/2023 FOR FX LEG 07/06/24 10:12 Any Problems With Anesthesia No 07/06/24 10:12 Cholinesterase deficiency No 07/06/24 10:12 You/Your Family Experience No 07/06/24 10:12 fever (hyperthermia) with Relationship Recent Exposure to Contagious No 07/02/24 10:56 Disease Does patient have nerve No 07/06/24 10:12 stimulator Patient instructed to have device shut off --Does patient have Pacemaker or ICD? When Was Last Pacemaker Check QUESTION #4 FULL TEXT: You/Your Family Experience fever (hyperthermia) with Anesthesia Last Oral Intake Last Oral intake: Last Oral Intake NPO since Meds taken in AM with sips of water? Meds patient instructed to take am of surgery PONV PONV - sourcing coordinator: PONV - sourcing coordinator Female Yes 07/06/24 10:12 HX of Motion Sickness No 07/06/24 10:12 HX of N/V After Surgery No 07/06/24 10:12 Non-Smoker Yes 07/06/24 10:12 Duration of Surgery greater No 07/06/24 10:12 than 60 minutes Number of Risk Factors 2 07/06/24 10:12 PONV Score Moderate Risk 07/06/24 10:12 Height & Weight Height & Weight: Anesthesia: Height & Weight Height 5 ft 07/02/24 10:56 Respiratory Assessment Respiratory Assessment - sourcing coordinator: Respiratory Tract Infection Hx - sourcing coordinator Hx Respiratory Tract Infection No 07/06/24 10:12 STOP Sleep Apnea STOP Sleep Apnea - sourcing coordinator: STOP Sleep Apnea - sourcing coordinator Hx Hypertension Yes: CONTROLLED WITH MED 07/06/24 10:12 Hx Sleep Apnea No 07/06/24 10:12 CPAP BIPAP Do you snore loudly (louder No 07/06/24 10:12 than talking or can be heard Do you often feel tired/ Yes 07/06/24 10:12 fatigued/ sleepy during daytime? Has anyone observed you stop No 07/06/24 10:12 breathing during sleep? STOP Results Positive 07/06/24 10:12 QUESTION #5 FULL TEXT : Do you snore loudly (louder than talking or can be heard through closed doors)? 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 Specify any problems Hx of Preganancy in last 3 No 07/06/24 10:12 Months Nurse Filling Out Transfusion DSCHRIBER 07/06/24 10:12 & Questions: Date: 07/06/24 07/06/24 10:12 Time: 10:15 07/06/24 10:12 Patient unable to answer at this time (ie. confused, unrespo /Reproduction History /Reproductive History - sourcing coordinator: /Reproductive Hx- sourcing coordinator Hx Now No 07/06/24 10:12 Gestational Age (in weeks): EDC: Hx Hx Para Hx Section SAB No 07/06/24 10:12 PFS Medical History (Updated 07/06/24 @ 10:21 by Clarissa Chowdary) Urinary retention Loss of hearing Wears glasses Wears partial dentures Post-menopausal Alcohol use Arthritis Bladder disease Sepsis Easy bruising Back pain Migraine headache Brain fog History of hiatal hernia History of ulceration History of IBS Gastric reflux Former smoker Leg cramps History of edema History of echocardiogram Cardiology follow-up encounter Aortic stenosis Heart murmur Essential hypertension Insomnia Hyperlipidemia GERD (gastroesophageal reflux disease) Fibromyalgia H/O esophageal spasm Bilateral carotid artery disease Atherosclerotic heart disease of [place] coronary artery without angina pectoris Anxiety and depression Home Medications ?Medication ?Instructions ?Recorded ?Last Taken ?Type amlodipine 5 mg tablet 5 mg PO BID blood pressure 08/20/23 07/02/24 History estradiol 0.01% (0.1 mg/gram) 1 g vaginal Q OTHER DAY chronic uti 08/20/23 07/01/24 History vaginal cream gabapentin 600 mg tablet 600 mg PO TID fibromyalgia 08/20/23 07/02/24 History melatonin 5 mg tablet 5 mg PO HS PRN sleep 08/20/23 07/01/24 History multivitamin 1 tab PO DAILY supplement 08/20/23 07/01/24 History pravastatin 40 mg tablet 40 mg PO DAILY cholesterol 08/20/23 07/01/24 History fluoxetine 20 mg capsule 20 mg PO BID depression 12/10/23 07/02/24 History acetaminophen 650 mg 1,300 mg PO QHS 06/25/24 Unknown History tablet,extended release alprazolam 0.25 mg tablet 0.25 mg PO BID anxiety 06/25/24 07/02/24 History ascorbic acid 1,000 1 ea PO DAILY 06/25/24 07/01/24 History ku-jbwqxjlfdsdo-jsevzonq powder effervescent pack (Emergen-C) aspirin 81 mg tablet,delayed 81 mg PO DAILY 06/25/24 07/02/24 History release (Adult Aspirin Regimen) cranberry extract 500 [id number] 2 tab PO DAILY 06/25/24 07/01/24 History 50 mg chewable tablet pantoprazole 40 mg tablet,delayed 40 mg PO DAILY 06/25/24 07/02/24 History release polyethylene glycol 3350 17 17 g PO BID PRN constipation 06/25/24 Unknown History gram/dose oral powder (GentleLax) Allergy/AdvReac Type Severity Reaction Status Date / Time codeine Allergy Unknown hallucinati Verified 07/06/24 10:09 ons Sulfa (Sulfonamide Allergy Unknown Rash Verified 07/06/24 10:09 Antibiotics) atorvastatin AdvReac Unknown muscle Verified 07/06/24 10:09 cramping Family History Father Heart disease age 49 Mother Heart disease age 76 Brother Heart disease age 60 Brother Myocardial infarction Surgical History (Updated 07/06/24 @ 10:21 by Clarissa Chowdary) History of bladder surgery History of back surgery History of esophagogastroduodenoscopy (EGD) H/O arthroscopic knee surgery History of colonoscopy History of dilatation and curettage History of tonsillectomy History of cholecystectomy History of hysterectomy Social History Smoking Status: Former smoker how long ago did patient quit smokin alcohol intake: current alcohol intake frequency: 0-2 drinks per day Alcohol type: wine substance use type: does not use caffeine: Yes Audit: Pertinent Findings Pertinent Findings EKG Perinent findings: NSR 09/24 Echo (EF%) pertinent findings: Left ventricle: The cavity size is normal. Wall thickness is normal. Left ventricular geometry is normal, with normal ventricular mass and normal relative wall thickness. Systolic function is normal. The estimated ejection fraction is 64%, by biplane method of discs. Wall motion is normal; there are no regional wall motion abnormalities. Features are consistent with a pseudo normal left ventricular filling pattern with concomitant abnormal relaxation and increased filling pressure (grade 2 diastolic dysfunction). The LVOT stroke-volume is 65 mL. Aortic valve: There is moderate calcification. There is mild to moderate stenosis. The peak systolic velocity is 2.7 m/sec. The peak systolic gradient is 29 mmHg. The LVOT to aortic valve VTI ratio is 0.4. The valve area is 1.3 cm?. Additional pertinent findings: Carotid duplex <50% bilaterally Recommendation Anesthesia Recommendation Anesthesia recommendation: OPTIMIZED for anesthesia
[2024-07-16] VITALS (9 sets, daily range): BP systolic 108–132; BP diastolic 45–64; PULSE 70–76; RESP 12–16; TEMP 35.8–36.4; O2SAT 92–94; BMI 25.8
[2024-07-16] MEDS: Vancomycin IV 1,000 MG/200 ML BAG 200 MG IV (07:31)
[2024-07-16] MEDS: Lactated Ringers 1,000 ML 15 ML IV (07:31)
--- NOTE | 2024-07-16 07:43 | PCM.PRE.AN2 ---
ASA Classification* ASA Classification ASA Classification: 3 Assessment & Plan Anesthesia* Anesthesia Assessment Anesthesia Assessment: Discussed sedation and/or anesthesia options, risks, benefits, and alternatives with patient/parents/legal guardian/POA. Questions invited. The patient/parents/legal guardian/POA seems to understand and agrees to proceed with anesthesia plan. Reviewed the physical assessment, medical history, allergy history and patient home medications list prior to surgery/procedure/anesthetic and documented any changes. Performed airway and anesthesia risk assessments. Anesthesia Type Anesthesia Type: General History Source History Obtained from:: Patient and Chart Anesthesia Focused Assessment* Temperature: 97.4 F Pulse Rate: 72 Blood Pressure: 130/64 Respiratory Rate: 12 Pulse Ox: 93 Oxygen Delivery Method: Room Air Airway Assessment Mouth opens: >3 cm Mallampati Score: II Teeth Condition: Dentures and Partial Focused Labs Anesthesia Preop lab: CBC WBC 7.3 K/mm3 (4.4-11.0) 04/17/24 11:37 04/17/24 RBC 3.83 M/mm3 (4.2-5.4) L 04/17/24 11:37 04/17/24 Hgb 12.5 g/dL (12.0-15.0) 04/17/24 11:37 04/17/24 Hct 38.7 % (37-47) 04/17/24 11:37 04/17/24 Plt Count 292 K/mm3 (150-450) 04/17/24 11:37 04/17/24 CHEMISTRY Potassium 4.0 mmol/L (3.5-5.1) 04/17/24 11:37 04/17/24 Sodium 137 mmol/L (136-145) 04/17/24 11:37 04/17/24 Magnesium 2.5 mg/dL (1.6-2.6) 10/08/23 05:45 10/08/23 BUN 14 mg/dL (7-18) 04/17/24 11:37 04/17/24 Creatinine 0.72 mg/dL (0.55-1.02) 04/17/24 11:37 04/17/24 Glucose 83 mg/dL (74-106) 04/17/24 11:37 04/17/24 COAG PT 12.7 SECONDS (11.7-14.9) 09/14/23 13:21 09/14/23 Pre-Assessment Diagnosis/Proposed Procedure Planned Operative Procedure(s): AXONICS STAGE 2 Anesthesia History Anesthesia History - partner alliance manager: Anesthesia History - partner alliance manager Hx Hospitalization Yes: 09/2023 FOR FX LEG 07/06/24 10:12 Any Problems With Anesthesia No 07/06/24 10:12 Cholinesterase deficiency No 07/06/24 10:12 You/Your Family Experience No 07/06/24 10:12 fever (hyperthermia) with Relationship Recent Exposure to Contagious No 07/02/24 10:56 Disease Does patient have nerve No 07/06/24 10:12 stimulator Patient instructed to have device shut off --Does patient have Pacemaker No 07/16/24 07:18 or ICD? When Was Last Pacemaker Check QUESTION #4 FULL TEXT: You/Your Family Experience fever (hyperthermia) with Anesthesia Last Oral Intake Last Oral intake: Last Oral Intake NPO since 21:00 07/16/24 07:18 Meds taken in AM with sips of Yes 07/16/24 07:18 water? Meds patient instructed to take am of surgery PONV PONV - partner alliance manager: PONV - partner alliance manager Female Yes 07/06/24 10:12 HX of Motion Sickness No 07/06/24 10:12 HX of N/V After Surgery No 07/06/24 10:12 Non-Smoker Yes 07/06/24 10:12 Duration of Surgery greater No 07/06/24 10:12 than 60 minutes Number of Risk Factors 2 07/06/24 10:12 PONV Score Moderate Risk 07/06/24 10:12 Height & Weight Height & Weight: Anesthesia: Height & Weight Height 5 ft 07/16/24 07:18 Weight: 60 kg 07/16/24 07:18 Body Mass Index (BMI) 25.8 07/16/24 07:18 Respiratory Assessment Respiratory Assessment - partner alliance manager: Respiratory Tract Infection Hx - partner alliance manager Hx Respiratory Tract Infection No 07/06/24 10:12 STOP Sleep Apnea STOP Sleep Apnea - partner alliance manager: STOP Sleep Apnea - partner alliance manager Hx Hypertension Yes: CONTROLLED WITH MED 07/06/24 10:12 Hx Sleep Apnea No 07/06/24 10:12 CPAP BIPAP Do you snore loudly (louder No 07/06/24 10:12 than talking or can be heard Do you often feel tired/ Yes 07/06/24 10:12 fatigued/ sleepy during daytime? Has anyone observed you stop No 07/06/24 10:12 breathing during sleep? STOP Results Positive 07/06/24 10:12 QUESTION #5 FULL TEXT : Do you snore loudly (louder than talking or can be heard through closed doors)? 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 Specify any problems Hx of Preganancy in last 3 No 07/06/24 10:12 Months Nurse Filling Out Transfusion DSCHRIBER 07/06/24 10:12 & Questions: Date: 07/06/24 07/06/24 10:12 Time: 10:15 07/06/24 10:12 Patient unable to answer at this time (ie. confused, unrespo /Reproduction History /Reproductive History - partner alliance manager: /Reproductive Hx- partner alliance manager Hx Now No 07/06/24 10:12 Gestational Age (in weeks): EDC: Hx Hx Para Hx Section SAB No 07/06/24 10:12 Active Medications Active Medications: Current Medications Generic Name Dose Route Start Last Admin Trade Name Freq PRN Reason Stop Dose Admin Vancomycin HCl 1,000 mg in 200 mls @ 200 mls/hr 07/16/24 08:25 07/16/24 07:31 Vancomycin IV 07/16/24 09:24 200 mls/hr PREOP ONE Administration Lactated Ringer's 1,000 mls @ 15 mls/hr 07/16/24 07:00 07/16/24 07:31 IV 15 mls/hr .Q48H PETER Administration PFSH Medical History Urinary retention Loss of hearing Wears glasses Wears partial dentures Post-menopausal Alcohol use Arthritis Bladder disease Sepsis Easy bruising Back pain Migraine headache Brain fog History of hiatal hernia History of ulceration History of IBS Gastric reflux Former smoker Leg cramps History of edema History of echocardiogram Cardiology follow-up encounter Aortic stenosis Heart murmur Essential hypertension Insomnia Hyperlipidemia GERD (gastroesophageal reflux disease) Fibromyalgia H/O esophageal spasm Bilateral carotid artery disease Atherosclerotic heart disease of [place] coronary artery without angina pectoris Anxiety and depression Home Medications ?Medication ?Instructions ?Recorded ?Last Taken ?Type amlodipine 5 mg tablet 5 mg PO BID blood pressure 08/20/23 07/16/24 History estradiol 0.01% (0.1 mg/gram) 1 g vaginal Q OTHER DAY chronic uti 08/20/23 07/14/24 History vaginal cream gabapentin 600 mg tablet 600 mg PO TID fibromyalgia 08/20/23 07/16/24 History melatonin 5 mg tablet 5 mg PO HS PRN sleep 08/20/23 07/15/24 History multivitamin 1 tab PO DAILY supplement 08/20/23 07/15/24 History pravastatin 40 mg tablet 40 mg PO DAILY cholesterol 08/20/23 07/15/24 History fluoxetine 20 mg capsule 20 mg PO BID depression 12/10/23 07/16/24 History acetaminophen 650 mg 1,300 mg PO QHS 06/25/24 07/15/24 History tablet,extended release alprazolam 0.25 mg tablet 0.25 mg PO BID anxiety 06/25/24 07/16/24 History ascorbic acid 1,000 1 ea PO DAILY 06/25/24 07/15/24 History fp-zpnrbrahjiou-umdqognj powder effervescent pack (Emergen-C) aspirin 81 mg tablet,delayed 81 mg PO DAILY 06/25/24 07/16/24 History release (Adult Aspirin Regimen) cranberry extract 500 si-w-mpxidun 2 tab PO DAILY 06/25/24 07/15/24 History 50 mg chewable tablet pantoprazole 40 mg tablet,delayed 40 mg PO DAILY 06/25/24 07/16/24 History release polyethylene glycol 3350 17 17 g PO BID PRN constipation 06/25/24 07/11/24 History gram/dose oral powder (GentleLax) Allergy/AdvReac Type Severity Reaction Status Date / Time codeine Allergy Unknown hallucinati Verified 07/16/24 07:16 ons Sulfa (Sulfonamide Allergy Unknown Rash Verified 07/16/24 07:16 Antibiotics) atorvastatin AdvReac Unknown muscle Verified 07/16/24 07:16 cramping Family History Father Heart disease age 49 Mother Heart disease age 76 Brother Heart disease age 60 Brother Myocardial infarction Surgical History History of bladder surgery History of back surgery History of esophagogastroduodenoscopy (EGD) H/O arthroscopic knee surgery History of colonoscopy History of dilatation and curettage History of tonsillectomy History of cholecystectomy History of hysterectomy Social History Smoking Status: Former smoker how long ago did patient quit smokin alcohol intake: current alcohol intake frequency: 0-2 drinks per day Alcohol type: wine substance use type: does not use caffeine: Yes Prior Cardiac Testing/Procedures Prior Cardiac Testing/Procedures: Echocardiogram (Moderate , EF 65%) Addt'l Information Additional Findings: NSR EKG Review of Systems (Anesthesia) ROS Narrative System reviewed and no additional complaints, except as documented. Physical Exam Const alert and oriented x3 Resp normal respiratory effort and normal air movement Auscultation: clear to auscultation bilaterally Cardio regular rate and regular rhythm Neuro oriented x3 and moves all extremities
--- NOTE | 2024-07-16 08:30 | DCINST_ITS ---
Discharge Instructions Diet Discharge Diet: No restrictions Activity Discharge Activity: Return to Normal Activity (in 2 weeks) and May Shower (Saturday morning) Additional Activity Instructions:: No exercise or strenuous activity for 2 weeks Dressing / Incision Call your doctor if your incision/area has: Continuous Slow Oozing, Sudden Increased Bleeding, Increased Pain/ Swelling and Foul Smelling Discharge Call your doctor if you observe: Fever of 101 or Higher, Inability to urinate and Inability to have a bowel movement Remove Dressing in: leave until fall off Follow Up Care Please Follow Up With: Rivka Del Toro MD When: In 2 to 3 weeks, the office will call to make follow-up arrangements. Test Results: Test results from this visit will be discussed in further detail at your follow- up appointment, if applicable. Discharge Plan Admission Attending Provider: Rivka Del Toro Primary Care Provider: Sosa Vazquez Instructions Print Language: Slovenian Discharge Orders/Prescriptions Prescriptions: New oxycodone-acetaminophen 5-325 mg tablet 1 tab PO Q8H PRN (Reason: pain) 3 Days Qty: 10 0RF cephalexin 500 mg capsule 500 mg PO Q12 3 Days Qty: 6 0RF Continued amlodipine 5 mg tablet 5 mg PO BID estradiol 0.01 % (0.1 mg/gram) cream 1 g vaginal Q OTHER DAY gabapentin 600 mg tablet 600 mg PO TID melatonin 5 mg tablet 5 mg PO HS PRN (Reason: sleep) multivitamin Tablet 1 tab PO DAILY pravastatin 40 mg tablet 40 mg PO DAILY fluoxetine 20 mg capsule 20 mg PO BID Rx Instructions: administer in the morning and at noon/midday pantoprazole 40 mg tablet,delayed release (DR/EC) 40 mg PO DAILY acetaminophen 650 mg tablet extended release 1,300 mg PO QHS Emergen-C 1,000 mg powder effervescent in packet 1 ea PO DAILY cranberry roqwtlo-a-mqfbixo 500-50 mg tablet,chewable 2 tab PO DAILY aspirin [Adult Aspirin Regimen] 81 mg tablet,delayed release (DR/EC) 81 mg PO DAILY alprazolam 0.25 mg Tablet 0.25 mg PO BID polyethylene glycol 3350 [GentleLax] 17 gram/dose powder 17 g PO BID PRN (Reason: constipation) Referrals / Follow Up: Sosa Vazquez, GUEST SERVICES ATTENDANT-C [Primary Care Provider] - Disposition Disposition (needs filled in before D/C Order can be placed): Home, Self Care
--- NOTE | 2024-07-16 08:34 | PCM.OPRPT ---
Operative Report (Standard) Operative Information Date of Procedure: 07/16/24 Pre-Operative Diagnosis: Urinary retention Post-Operative Diagnosis: Same Surgery/Procedure Performed: Axonics stage II aircraft engine assembler: No Type of Anesthesia: MAC RN Documented Start/Stop Times: Operation Date: 07/16/24 08:25 Case Time Into Pre-Op 07/16/24 06:58 Out of Pre-Op 07/16/24 08:30 Anesthesia Start 07/16/24 08:31 Into Room 07/16/24 08:31 Procedure Start 07/16/24 08:47 Procedure End 07/16/24 09:01 Anesthesia End 07/16/24 09:05 Out of Room 07/16/24 09:05 Into Recovery 07/16/24 09:06 Procedure Start Time: 08:47 Procedure Stop Time: 09:01 Select all DRAINS/GRAFTS/IMPLANTS that apply: Implanted device Implanted device details: Axonics battery Estimated Blood Loss: 5cc Specimen collected: No Description of surgery: The patient is an 83-year-old female who has had a successful Axonics stage I trial and presents for implantation of her battery. Informed consent was obtained. The patient was taken to the operating room and placed in a prone position on the operating room table. Anesthesia monitored the head, neck, airway, IV access and vital signs throughout the case. She was appropriately padded and secured to the table. Once anesthesia was appropriate ministered, she was prepped and draped in the usual sterile fashion. The pocket incision was carefully infiltrated with local anesthetic. The incision was opened with care being taken to avoid injury to the lead. The lead extension was then removed and pulled from the surgical field. The pocket site was enlarged with blunt dissection and Bovie cautery for hemostasis. The area was irrigated. The lead was dried and inserted into the battery and secured using the torque wrench. The battery was placed into the pocket. The connection was tested and found to be appropriate. The pocket was closed in 2 layers with 3-0 Vicryl interrupted followed by 4-0 subcuticular Monocryl and Dermabond over the skin. She was then awakened and taken to the recovery room in good condition. There were no complications during this procedure. Surgical Findings: Battery implanted in previous pocket site no evidence of infection, no impedances Complications Complications: No Admit VTE Documentation VTE Present on Admission: No VTE Mechan Device Prophylaxis: None VTE Pharm Prophylaxis ordered?: No Reason prophylaxis not ordered: Treatment Not Indicated
[2024-07-16] MEDS: Lidocaine 1% /Epi 1:100 (20ml) 20 ML Vial (08:55)
--- NOTE | 2024-07-16 09:22 | PCM.POST.ANE ---
Anesthesia: Postop Eval I Current Vital Signs Temperature: 97.6 F Pulse Rate: 72 Blood Pressure: 114/63 Respiratory Rate: 14 Pulse Ox: 93 Oxygen Delivery Method: Room Air Assessment Airway patent: Yes Spontaneous unlabored respirations: Yes Mental status: Awake nausea: No Vomiting: No Anesthesia Complication: No Fluid Hydration Crystalloid volume administer (ml): 400 Total IV fluid infused: 400 Progress Note Anesthesia document: Postop Eval 1 completed: Yes
--- NOTE | 2024-07-16 14:38 | POSTOPAN2_ITS ---
Anesthesia Postop Eval I Sum Postop Eval Completion status Anesthesia document: Postop Eval 1 completed: Yes Anesthesia Postop Eval I Summary Anesthesia Postop Eval I Summary: Anesthesia Postop Eval I: Assessment Summary Airway patent Yes 07/16/24 09:22 BUS [email or web address] Spontaneous unlabored Yes 07/16/24 09:22 BUS [email or web address] respirations Mental status Awake 07/16/24 09:22 BUS [email or web address].[email or web address] nausea No 07/16/24 09:22 BUS OPERATOR.[email or web address] Vomiting No 07/16/24 09:22 BUS [email or web address].[email or web address] Anesthesia Postop Eval I: Fluid Summary Crystalloid volume administer 400 07/16/24 09:22 BUS [email or web address].[email or web address] (ml) Colloids volume administered ( ml) Blood Product volume administered (ml) Total IV fluid infused 400 07/16/24 09:22 BUS [email or web address].HBARR Anesthesia Postop Eval I: Summary Notes Anesthesia Complication No 07/16/24 09:22 BUS [email or web address].HBARR Anesthesia Complication Comment: Post-operative progress note Anesthesia: Postop Eval II Evaluation Mental status: Awake and Calm Pain Level: 1 nausea: No Vomiting: No Complications Anesthesia Complication: No
--- NOTE | 2024-07-16 14:38 | PCM.POSTANE2 ---
Anesthesia Postop Eval I Sum Postop Eval Completion status Anesthesia document: Postop Eval 1 completed: Yes Anesthesia Postop Eval I Summary Anesthesia Postop Eval I Summary: Anesthesia Postop Eval I: Assessment Summary Airway patent Yes 07/16/24 09:22 ELECTRICIAN [email or web address] Spontaneous unlabored Yes 07/16/24 09:22 ELECTRICIAN HELPER.HBARR respirations Mental status Awake 07/16/24 09:22 ELECTRICIAN HELPER.HBARR nausea No 07/16/24 09:22 ELECTRICIAN HELPER.HBARR Vomiting No 07/16/24 09:22 ELECTRICIAN HELPER.HBARR Anesthesia Postop Eval I: Fluid Summary Crystalloid volume administer 400 07/16/24 09:22 ELECTRICIAN HELPER.HBARR (ml) Colloids volume administered ( ml) Blood Product volume administered (ml) Total IV fluid infused 400 07/16/24 09:22 ELECTRICIAN HELPER.HBARR Anesthesia Postop Eval I: Summary Notes Anesthesia Complication No 07/16/24 09:22 ELECTRICIAN HELPER.HBARR Anesthesia Complication Comment: Post-operative progress note Anesthesia: Postop Eval II Evaluation Mental status: Awake and Calm Pain Level: 1 nausea: No Vomiting: No Complications Anesthesia Complication: No
== END 2024-07-16 10:20 | disposition home or self-care (01) ==
LOC: SDC 06:48 → AC 06:50
PROVIDERS: PCP Nurse Practitioner Family; Referring Provider Urology; Visit Provider Urology
PROC: (CPT 64590; principal; 2024-07-16 08:15)
DX: R33.9 Retention of urine, unspecified (principal); Z87.891 Personal history of nicotine dependence; N31.9 Neuromuscular dysfunction of bladder, unspecified; R39.16 Straining to void; Z90.49 Acquired absence of other specified parts of digestive tract; Z90.710 Acquired absence of both cervix and uterus
CPT/HCPCS: 64590; 00400; C1767; J2405

== ENCOUNTER → 2024-11-13 | Outpatient (CLI) | payer MEDICARE, OTHER, SELFPAY ==
--- NOTE | 2024-11-13 12:41 | ST.MBS ---
Modified Barium Swallow Patient Information Study Date: 11/13/24 Study Time: 12:40 Direct Billable Minutes: 80 Total Minutes procedure & reportin Diagnosis: Dysphagia R13.10 Referring Physician: CLAIRE CARBONE Reason for Referral: Objectively assess swallow function, assess risk for aspiration, and determine recommendations for least restrictive diet textures and compensatory strategies to improve safety of swallow. Medical History: The patient was referred for MBSS by Claire Carbone CNP of Gastroenterology. Patient has hx of recent EGD 05/2024 w/ esophageal dilation, no other findings per pt report. Hx of 4-5 dilations total. She feels her swallowing somewhat improved after recent EGD, but she still experiences episodes of esophageal retention (pointing to her sternum) w/ foods. This retention can happen w/ any foods, but bread and large bites give her difficulty most often. She experiences esophageal retention ~3-4X/week w/ occasional odyophagia and even regurgitation of foods at times. She has had swallowing difficulty for >15 years. Of note, pt feels irritation in her throat w/ singing at restoration w/ intermittent hoarseness. No hx of ENT work up that she can recall. Pt is planning to transfer her GI care to a practice in [place] after further discussion w/ primary care. PMH (Per H&P in EMR 07/16/2024): Anxiety, Colon polyp, Depression, Esophageal spasm, GERD, Fibromyalgia, Vascular disease, HTN. PSH (Per H&P in EMR 07/16/2024): Back surgery, D&C 4X, Cholecystectomy, Hysterectomy, Tonsillectomy, Upper GI endo, Arthroscopy of R knee, Spinal procedure, Ankle fx, UDS. Current Diet Ordered: Regular textures / Thin liquids Dentition: Partials (upper) and Missing Teeth (lower, partials at home) Mental Status: WNL Respiratory Status: Oxygenating on Room Air Penetration-Aspiration Scale Penetration-Aspiration Scale: OBJECTIVE ASSESSMENT OF SWALLOW FUNCTION (QUANTITATIVE ? PER TRIAL): PENETRATION / ASPIRATION SCALE (ESCOTO): 1 = does not enter airway 2 = enters airway/above vocal folds/ejected 3 = enters airway/above vocal folds/not ejected 4 = enters airway/contacts vocal folds/ejected 5 = enters airway/contacts vocal folds/not ejected 6 = enters airway/below vocal folds/ejected 7 = enters airway/below vocal folds/not ejected despite effort 8 = enters airway/below vocal folds/no effort VIDEOFLOROSCOPIC SCALE SCORE (ESCOTO): Grade I = aspiration of material that has penetrated into the laryngeal vestibule, intact cough reflex Grade II = aspiration < 10 % of the bolus, intact cough reflex Grade III = aspiration of < 10 % of the bolus, reduced cough reflex or aspiration of > 10 % of the bolus, intact cough reflex Grade IV = aspiration of > 10 % of the bolus, reduced cough reflex Penetration-Aspiration Scale Score Thin Liquid via teaspoon: Result: 1= does not enter airway Thin Liquid via teaspoon Trial 2: Result: 1= does not enter airway Thin Liquid via large single sip: cup: Result: 1= does not enter airway Thin Liquid via sequential sips: cup: Result: 2= enter airway/above vocal folds/ejected Comment: Esophageal screen - Retrograde flow of barium to the upper esophagus, which somewhat emptied but ultimately resulted in retention in the middle and lower esophagus. Pudding via teaspoon: Result: 1= does not enter airway Comment: Esophageal screen - Mild retention in the upper esophagus. Moderate-severe retention in the middle and lower esophagus w/ retrograde flow to the upper esophagus. Thin Liquid via single sip: straw: Result: 2= enter airway/above vocal folds/ejected Comment: Esophageal screen - Liquid wash effectively cleared a majority of esophageal retention of pudding. 1/2 Cookie: Result: 1= does not enter airway Comment: Esophageal screen - Moderate retention throughout the esophagus, primarily in the upper and middle esophagus. Thin Liquid via single sip: straw Trial 2: Result: 2= enter airway/above vocal folds/ejected Comment: Esophageal screen - First liquid wash somewhat cleared retention of cookie through the LES. Second liquid wash cleared the remaining cookie through the LES. Oral Phase Labial Seal: Interlabial escape, no progression to anterior lip Tongue Control During Bolus Hold: Posterior escape of less than half of bolus Bolus Preparation/Mastication: Timely and efficient chewing and mashing Bolus Transport/Lingual Motion: Delayed initiation of tongue motion Oral Residue: Residue collection on oral structures Pharyngeal Phase Initiation of Pharyngeal Swallow: Bolus head in pyriforms Soft Palate Elevation: Trace column of contrast/air between soft palate and pharyngeal wall Laryngeal Elevation: Comp. Superior move thyroid cart w/comp. apprx arytenoid cart-epig pet Anterior Hyoid Excursion: Complete anterior movement Epiglottic Movement: Complete inversion Laryngeal Vestibule Closure at Height of Swallow: Incomplete; narrow column of air/contrast in laryngeal vestibule Pharyngeal Stripping Wave: Present - complete Pharyngoesophageal Segment Opening: Complete distension and complete duration; no obstruction of flow Tongue Base Retraction: Narrow column of contrast between tongue base & post. pharyngeal wall Pharyngeal Residue: Collection of residue within or on pharyngeal structures Esophageal Phase Esophageal Clearance: Esophageal retention w/ retrograde flow below pharyngoesophageal seg. Diagnosis/Impression Diagnosis: Esophageal dysphagia R13.14; Oropharyngeal swallow function grossly WNL MBS Impressions: Oropharyngeal swallow function grossly WNL. The esophageal phase is marked by... -Sequential sips of thin liquids: Retrograde flow of barium to the upper esophagus, which somewhat emptied but ultimately resulted in retention in the middle and lower esophagus. -Pudding: Mild retention in the upper esophagus. Moderate-severe retention in the middle and lower esophagus w/ retrograde flow to the upper esophagus. Pudding mostly cleared through the LES w/ a single liquid wash. -Cookie: Moderate retention throughout the esophagus, primarily in the upper and middle esophagus. Cookie mostly cleared through the LES w/ two liquid washes. Recommendations Diet: Regular Textures and Thin Liquids Comment: If sensation of retention despite use of liquid wash, stop meal and resume meal at a later time. Compensatory Strategies: Small Bites, Small Sips, Slow Rate, Alternate bites/solids and sips/liquids (1-2 sips after each bite) and Sitting upright (During and 60min after meals) Recommend Repeat Modified Barium Swallow: No Need for Skilled Speech Therapy Services: No Recommended Referrals: GI Consult (Follow w/ GI for management of esophageal dysphagia) and ENT Consult (Intermittent hoarseness and sensation of irritation in her voice when singing) Education Completed: 1. Described result of evaluation. Status Active ST Patient: Active Contact Information [facility] Speech Therapy:: Sharon Werner M.A. [facility] FILLING MACHINE OPERATOR Speech-Language Pathologist [facility] [address] [place] [address] [email or web address] [phone]
== END | disposition home or self-care (01) ==
LOC: RAD 12:36
PROVIDERS: PCP Nurse Practitioner Family; Referring Provider Nurse Practitioner Adult Health; Visit Provider Nurse Practitioner Adult Health
DX: R13.10 Dysphagia, unspecified (principal)
CPT/HCPCS: 74230; 92611

== ENCOUNTER → 2024-11-17 | Outpatient (CLI) | payer MEDICARE, OTHER, SELFPAY ==
--- NOTE | 2024-11-17 09:55 | RAD_ITS ---
PROCEDURE: ESOPHAGUS DUAL CONTRAST 11/17/2024 REASON FOR EXAM: DYSPHAGIA TECHNIQUE: ESOPHAGUS DUAL CONTRAST FLUOROSCOPIC TIME: 36 seconds. FLUOROGRAPHIC IMAGES: 35 Radiation dose: 2.3 mGy COMPARISON: None FINDINGS: The patient ingested barium. Multiple images of the esophagus were obtained. No evidence of obstruction. No evidence of mass lesion. No gastroesophageal reflux. The patient ingested a 12 mm tablet the barium without any difficulty. Findings suggestive of gallstone. RAD/Esophagus Dual Contrast IMPRESSION: Unremarkable esophagram barium swallow. Reading Location: [place] [id number]
== END | disposition home or self-care (01) ==
LOC: RAD 09:47
PROVIDERS: PCP Nurse Practitioner Family; Referring Provider Nurse Practitioner Adult Health; Visit Provider Nurse Practitioner Adult Health
DX: R13.10 Dysphagia, unspecified (principal)
CPT/HCPCS: 74221